=== PATIENT | male | born 1955 | race Caucasian/White ===

== ENCOUNTER 2019-04-20 03:15 | Inpatient (IN) ==
[2019-04-20] MEDS ORDERED: Naloxone 0.4 MG/ML INJ IVP PRN (05:32)
[2019-04-20] MEDS ORDERED: Nitroglycerin 0.4 MG TAB.SUBL SL PRN (05:37)
--- NOTE | 2019-04-20 05:39 | Internal Med History&Physical ---
Date of Encounter: 04/20/19 Time of Encounter: 05:39 Internal Medicine - H&P: HPI Chief complaint: Chest Pain History of present illness: Mr. Bond is a 63 year old male with a PMH of COPD and coronary artery disease status post PCI in 2008 who initially presented to [facility] with complaints of chest pain. Patient states that around 7 PM last night he was having jaw pain. Around midnight patient began having substernal chest pain causing him to grab his chest both hands. Patient was in his car at the time. Pain described as if being hit in the chest. Pain was 6 out of 10 in intensity, nonradiating, but did note pain in both arms bilaterally. Symptoms again improved after after taking another sublingual nitroglycerin. Patient states by the time he arrived to [facility] symptoms had resolved. Patient smokes a pack and half a day. Denies alcohol or drug use. Patient not currently on cholesterol medication because he states he was taken off it by his doctor due to being well controlled. Family history of heart disease with his older brother dying at age of 49 after a massive heart attack. Patient denies any recent illness, shortness of breath, nausea, vomiting, diarrhea, orthopnea, lower extremity edema. On initial assessment patient was afebrile, hemodynamically stable. Laboratory workup was notable for a mildly elevated troponin of 0.05. EKG shows sinus rhythm with nonspecific ST changes. Patient was getting loading dose of aspirin and subsequently transferred here for further evaluation. On my assessment patient was lying in bed in no acute distress. Vital stable. No reports of chest pain at this time. Past Med Surg Social Fam HX - Past Medical History Medical history: COPD, coronary artery disease, hypertension, other Additional medical history: restless leg syndrome. 2009 stent placement Psychiatric history: depression - Past Surgical History Surgical History: angioplasty/stent - Social History Smoking Status: Current every day smoker Smokeless Tobacco Status: No Alcohol use: none Drug use: none - Family History Father Living Status: Age at : 65 Hx Family Cancer: Yes (bladder cancer) Mother Hx Family Respiratory Disorders: Yes (COPD) Brother Hx Family Cardiac Disorders: Yes ([place]) Internal Medicine - H&P: Meds Aspirin [Adult Low Dose Aspirin EC] 81 mg PO DAILY 01/11/16 [History] Beclomethasone Diprop 80mcg [QVAR 80 mcg] 1 puff IH DAILY 01/11/16 [History] Clopidogrel [Plavix] 75 mg PO DAILY 01/11/16 [History] Gabapentin [Gralise] 600 mg PO DAILY 01/11/16 [History] Losartan Potassium [Cozaar] 100 mg PO DAILY 01/11/16 [History] Metoprolol Succinate 100 mg PO DAILY 01/11/16 [History] traMADol [Ultram] 50 mg PO HS 01/11/16 [History] Nitroglycerin [Nitrostat] 0.4 mg SL PRN PRN #1 vial 01/12/16 [Rx] hydroCHLOROthiazide [Hydrochlorothiazide] 12.5 mg PO DAILY 01/08/19 [History] Allergy/AdvReac Type Severity Reaction Status Date / Time No Known Allergies Allergy Verified 04/20/19 01:01 All Systems PM: A 10-system review of systems was performed and is negative for pertinent findings except as documented above in the HPI. - Constitutional Constitutional: no chills, no fever(s), no night sweats - EENT Eyes: no change in vision, no discharge, no pain, no photophobia Ears: no ear discharge, no ear pain, no tinnitus Nose, mouth and throat: no dysphagia, no nasal discharge, no neck pain, no sore throat - Cardiovascular Cardiovascular ROS IM: no chest pain, no diaphoresis, no dyspnea, no lightheadedness, no palpitations, no syncope - Respiratory Respiratory: no cough, no dyspnea, no wheezing, no excessive phlegm production - Gastrointestinal Gastrointestinal: no abdominal pain, no diarrhea, no hematemesis, no hematochezia, no melena, no nausea, no vomiting - Musculoskeletal Musculoskeletal ROS IM: no numbness, no tingling - Integumentary Integumentary IM: no rash, no unusual bruising - Neurological Neurological ROS: no confusion, no convulsions, no focal weakness, no numbness, no tingling, no tremor(s) - Hematologic/Lymphatic Hematologic/Lymphatic: no easy bruising - Constitutional Vitals: Temp Pulse Resp BP Pulse Ox 98.3 F 73 16 157/90 97 04/20/19 04:24 04/20/19 04:24 04/20/19 04:24 04/20/19 04:24 04/20/19 04:24 Exam: General: Alert and oriented 3 lying in bed in no acute distress Skin:Normal color, no rash, no lesions. HEENT:EOM, pupils equal, round and reactive. Cardiovascular:Normal S1 & S2, no rubs, murmurs or gallops. No JVD. Pulse regular. Lungs:Normal breath sounds, no wheezes or crackles. Abdomen:Soft, non-tender, no rigidity. Extremities:No deformity, no edema or tenderness, no joint swelling or clubbing. Neurological:Normal cognition and motor skills. Pulses:Carotid and radial pulses normal +2. Rest of the physical exam is non contributory Internal Med - H&P Results - Labs CBC & Chem 7: 04/20/19 09:12 - Assessment and Plan (1) Chest pain Current Visit: No Status: Acute Assessment and plan: Patient presenting with atypical chest pain which resolved after sublingual nitroglycerin. Found to have a mildly elevated troponin of 0.05. EKG relatively unremarkable. History of coronary artery disease status post stent placement in 2008. Significant smoking history and continues to smoke half a pack a day. Currently chest pain-free. Received loading dose of aspirin -Telemetry -Trend troponin -Echocardiogram -Sublingual nitroglycerin as needed -Continue patient's beta shagufta and Plavix -Consult cardiology Qualifiers: Chest pain type: precordial pain Qualified Code(s): R07.2 - Precordial pain (2) Elevated troponin I level Current Visit: No Status: Acute Assessment and plan: See above (3) COPD (chronic obstructive pulmonary disease) Current Visit: No Status: Chronic Assessment and plan: History of COPD. No evidence of acute exacerbation. Patient continues to smoke half pack a day. Discussed smoking cessation. -Duo nebs as needed -Nicotine patch Qualifiers: COPD type: unspecified COPD Qualified Code(s): J44.9 - Chronic obstructive pulmonary disease, unspecified (4) Coronary artery disease Current Visit: Yes Status: Acute Assessment and plan: Patient reports history of coronary artery disease with stent placement in 2008. Currently on baby aspirin, beta shagufta and Plavix. -Continue medical management Qualifiers: Coronary Disease-Associated Artery/Lesion type: [place] artery [place] vs. transplanted heart: [place] heart Associated angina: angina presence unspecified Qualified Code(s): I25.10 - Atherosclerotic heart disease of [place] coronary artery without angina pectoris (5) DVT prophylaxis Current Visit: Yes Status: Acute Assessment and plan: Subcutaneous heparin - Time Spent With Patient Total time spent is greater than 50% in coordination of care (as documented) at patient's floor/unit and/or counseling patient:
[2019-04-20 07:01] LABS: Hematocrit 39.1 % (37.5-50.1); Hemoglobin 12.6 g/dL (12.9-16.9); Mean Corpuscular HGB Conc 32.2 g/dL (31.6-35.5); Mean Corpuscular Hemoglobin 29.2 pg (28.0-33.3); Mean Corpuscular Volume 90.7 fL (83.0-100.0); Mean Platelet Volume 10.6 fL (9.4-12.4); Platelet Count 244 K/mcL (140-400); Red Blood Count 4.31 M/mcL (4.19-5.50); Red Cell Distribution Width 13.5 % (11.5-14.5); White Blood Count 9.8 K/mcL (4.3-11.1)
[2019-04-20] MEDS: Gabapentin 300 MG CAPSULE PO SCH (07:20)
[2019-04-20] MEDS: Metoprolol XL (24 HR) Succ 50 MG TAB.ER.24H PO SCH (07:20)
[2019-04-20] MEDS: Aspirin Enteric Coated 81 MG Tablet PO SCH (07:20)
[2019-04-20] MEDS: hydroCHLOROthiazide 25 MG TABLET PO SCH (07:21)
[2019-04-20] MEDS: QVAR 80 MCG IH SCH (07:26)
[2019-04-20] MEDS ORDERED: Ipratropium/Albuterol Neb 3 ML IH PRN (07:41)
[2019-04-20] MEDS ORDERED: *HR* Heparin 5,000 UNIT/ML VIAL SQ SCH (07:45)
[2019-04-20 08:00] LABS: Chol/HDL Ratio 3.3 (0-4.9)
[2019-04-20 08:05] LABS: Troponin I 0.07 ng/mL (< 0.04)
--- NOTE | 2019-04-20 08:40 | Event Note ---
Date of Encounter: 04/20/19 Time of Encounter: 08:33 Patient was seen and examined at bedside Currently denies any CP- has nitro patch on. This AM trop slightly elevated Notified cardiology -initiated on heparin drip to nothing by mouth for possible heart catheter
[2019-04-20] MEDS ORDERED: *HR* Heparin 5,000 UNIT/ML VIAL IVP PRN ×2 (09:03)
[2019-04-20] MEDS ORDERED: *HR* Heparin 5,000 UNIT/ML VIAL IVP ONE (09:03)
[2019-04-20] MEDS: Nicotine 14 MG PATCH.TD24 TD SCH ×2 (09:11→09:14)
[2019-04-20] MEDS ORDERED: Heparin 25,000 UNIT/250 ML D5W 25,000 UNIT/250 ML IV.SOLN IVC SCH (09:15)
[2019-04-20 09:32] LABS: Hematocrit 38.1 % (37.5-50.1); Hemoglobin 12.3 g/dL (12.9-16.9); Mean Corpuscular HGB Conc 32.3 g/dL (31.6-35.5); Mean Corpuscular Hemoglobin 28.9 pg (28.0-33.3); Mean Corpuscular Volume 89.6 fL (83.0-100.0); Mean Platelet Volume 10.5 fL (9.4-12.4); Platelet Count 236 K/mcL (140-400); Red Blood Count 4.25 M/mcL (4.19-5.50); Red Cell Distribution Width 13.5 % (11.5-14.5); White Blood Count 9.5 K/mcL (4.3-11.1)
[2019-04-20 09:41] LABS: Prothrombin Time 11.5 Seconds (9.4-12.1)
--- NOTE | 2019-04-20 10:12 | Cardiology Consult Note ---
Date of Encounter: 04/20/19 Time of Encounter: 09:30 Assessment and Plan (1) Elevated troponin I level Current Visit: No Status: Acute Pt presents with chest pain that is atypical. Pain not like previous angina. Occurs with emotional stress. Mild troponin 0.05, 0.07. EKG SR with no acute ST changes. H/o CAD with PCI in 2008. Recommend TTE for further evaluation. LHC vs stress test discussed. Discussed LHC R/B/A. Heparin gtt ordered. Asa, plavix, statin, bb. Smoking cessation recommended. Further recommendations to follow. (2) Coronary artery disease Current Visit: Yes Status: Acute H/p PCI 2008. Poor cardiology f/u. Not on GDMT. Stopped statin in past. Last LHC showed nonobstructive CAD with a 30% proximal LAD stenosis , 30% mid LAD, 30% mid circumflex, 40% proximal RCA disease with LV ejection fraction of 60%. He has a patent stent in mid RCA with 30% stenosis in distal RCA. Continue asa, statin, bb. Qualifiers: Coronary Disease-Associated Artery/Lesion type: [place] artery [place] vs. tr ansplanted heart: [place] heart Associated angina: angina presence unspecified Qualified Code(s): I25.10 - Atherosclerotic heart disease of [place] coronary artery without angina pectoris (3) Atypical chest pain Current Visit: No Status: Resolved Discussion w patient/family: The assessment and plan as outlined above was discussed with the patient and/or family members who expressed understanding and agreement. All questions were answered. Thank you for involving us in the care of your patient. Please call with any questions. History of Present Illness Consult date: 04/20/19 Requesting physician: Mallory Baker Consult reason: Chest pain History of present illness: Mr. Bond is a 63 year old male with past medical history of CAD s/p PCI in 2008, HTN, HLD, and tobacco abuse who presents with sudden onset of chest pain while driving. His pain was rated 10/10 and felt like someone punching him in the chest. The pain radiated to his bilateral shoulder. He took one nitrostat with relief of his pain. He reports similar pain one week prior that also was relieved with nitrostat. He feels he is under alot of pressure due to taking primary care of his grand children. States that both times he had chest pain he was feeling overwhelmed and yelling. Past Med Surg Social Fam HX - Past Medical History Medical history: COPD, coronary artery disease, hyperlipidemia, hypertension, other Additional medical history: restless leg syndrome. 2009 stent placement Psychiatric history: depression - Past Surgical History Surgical History: angioplasty/stent - Social History Smoking Status: Current every day smoker Packs per day: 1-2 Smokeless Tobacco Status: No Alcohol use: none Drug use: none - Family History Father Living Status: Age at : 65 Hx Family Cancer: Yes (bladder cancer) Mother Hx Family Respiratory Disorders: Yes (COPD) Brother Hx Family Cardiac Disorders: Yes ([place]) Medications and Allergies Aspirin [Adult Low Dose Aspirin EC] 81 mg PO DAILY 01/11/16 [History] Beclomethasone Diprop 80mcg [QVAR 80 mcg] 1 puff IH DAILY 01/11/16 [History] Clopidogrel [Plavix] 75 mg PO DAILY 01/11/16 [History] Gabapentin [Gralise] 600 mg PO DAILY 01/11/16 [History] Losartan Potassium [Cozaar] 100 mg PO DAILY 01/11/16 [History] Metoprolol Succinate 100 mg PO DAILY 01/11/16 [History] traMADol [Ultram] 50 mg PO HS 01/11/16 [History] Nitroglycerin [Nitrostat] 0.4 mg SL PRN PRN #1 vial 01/12/16 [Rx] hydroCHLOROthiazide [Hydrochlorothiazide] 12.5 mg PO DAILY 01/08/19 [History] Allergy/AdvReac Type Severity Reaction Status Date / Time No Known Allergies Allergy Verified 04/20/19 01:01 All Systems Review: The remainder of the systems were reviewed and are negative Physical Examination Vital Signs, Last 4 Hours Temp Pulse Resp BP Pulse Ox 04/20/19 07:42 97.8 F 70 16 138/91 96 General: Conversant, No Apparent Distress HEENT: Atraumatic, Normocephaly, Mucus Membranes Moist Neck: No JVD, Normal carotid pulses Cardiac: Reg Rate and Rhythm, Normal S1 and S2, No Murmur Lungs: Normal Breath Sounds, No Wheeze, Rales, Rhonchi Neuro: Alert and responsive, No focal deficits noted Abdomen: Soft, Non-Tender Skin: No rashes noted on visualized skin Musculoskeletal: No Chest Wall Tenderness Extremities: No Clubbing, No Cyanosis, No Edema, Normal Pulses Results 04/20/19 09:12 Lab Results 04/20/19 04/20/19 04/20/19 06:46 06:49 06:49 WBC 9.8 Hgb 12.6 L Hct 39.1 Plt Count 244 INR Troponin I 0.07 H* B-Natriuretic Peptide 189 H 04/20/19 04/20/19 09:12 09:12 WBC 9.5 Hgb 12.3 L Hct 38.1 Plt Count 236 INR 1.0 Troponin I B-Natriuretic Peptide - Imaging and Cardiology Echo: report reviewed - EKG Interpretation EKG results cardiology: personally reviewed Consult Discharge Plan - Plan Referrals: Valerie Arriaga, WORKFORCE DEVELOPMENT PROGRAM DIRECTOR [Primary Care Provider] -
[2019-04-20] MEDS ORDERED: 0.9 % Sodium Chloride 1,000 ML ONE ×2 (13:48→15:00)
[2019-04-20] MEDS ORDERED: ISOVUE-370 200 ML INFUS..BTL ONE (13:48)
[2019-04-20] MEDS ORDERED: Nitroglycerin 1,000 MCG/10 ML VIAL IV ONE (13:48)
[2019-04-20] MEDS ORDERED: Heparin 1,000 UNITS/500 mL 500 ML ONE (13:48)
[2019-04-20] MEDS ORDERED: *HR* Heparin 10,000 UNIT/10 ML VIAL ONE (13:48)
[2019-04-20] MEDS ORDERED: *HR* Midazolam HCl 2 MG/2 ML VIAL ONE (15:00)
[2019-04-20] MEDS ORDERED: *HR* FentaNYL (PF) 100 MCG/2 ML VIAL ONE (15:00)
--- NOTE | 2019-04-20 15:00 | Pre-Sedation Evaluation ---
Pre-sedation evaluation - Pre-sedation checklist Date of procedure: 04/20/19 Procedure: left heart cath Recent Vitals: Last Vital Signs Temp 98.0 F 04/20/19 10:28 Pulse 67 04/20/19 10:28 Resp 16 04/20/19 10:28 BP 125/82 04/20/19 10:28 Pulse Ox 95 04/20/19 10:28 H&P (including ROS) documented in medical record: Yes Previous reaction to sedatives/anesthetics: No Dietary Status: NPO after Midnight Airway Assessment: Patient can open mouth completely, TMJ function normal, Micrognathia (under-bite, receding chin) absent, Neck with adequate range of motion Dentition: dentures removed Possible difficult airway: No ASA Classification *see protocol: CLASS II-Mild systemic disease Plan of Care: Pt appropriate candidate for procedure/moderate/conscious sedation, Risks/benefits of procedure/sedation discussed w/ patient/family Cardiac Registry (Cardio Only) - Functional Capacity Functional Capacity: >=4 METS with symptoms - Clincal Frailty Scale Clinical Frailty Scale: Vulnerable
--- NOTE | 2019-04-20 15:51 | Invasive Diagnostic Lab Proc ---
Name: Robert Bond Date of Study: 04/20/2019 Date: 1955 Ht: 66.9in Medical Record#: [id number] Age: 63 Wt: 193.57lb Gender: Male BSA: 1.99 Order #: [id number] BMI: 30.38 Physicians Procedure Physician: Lesvia Perez MD, [facility] Referring MD: Referring MD: Staff Name Position Time In Ismael Yair MITCHELL Monitor 02:57 PM Iris Quinteros RN Senior Windows Engineer 02:58 PM Holly Solares RT (R) Scrub 02:58 PM Indications Indication Non-Stemi Procedures Performed Procedure L HRT ARTERY/VENTRICLE ANGIO Pre-Procedure Checklist Informed consent is complete signed and on chart. H&P is on chart. ID band is on and ID verified with patient. Patient NPO for procedure The procedure was described for the patient and questions were answered. ECG is on chart. Rhythm: NSR Plan of Care Patient will tolerate the procedure without complications. Adequate level of comfort will be maintained. Hemodynamics will remain stable Patient will recover from procedure without complications. Respiratory function will be maintained. Cardiac rhythm will remain stable. Patient temperature will be maintained. Patient and/or family have verbalized understanding of the procedure. Patient Education Chief Complaint/Reason for Test: Cardiac Cath Developmental Category: Adult (18-64 years) Developmentally Appropriate for Age: Yes Learning Barriers: None Education Needs: Procedure Education Method: Verbal Information Taught: Cardiac Cath Educational Evaluation: Able to repeat information Intravenous Access Time IV Size Location DC'd Fluid/Drip Rate Units RN 20g 1 /" Patent On Arrival Rt Antecubital 0.9NaCl ml/hr Iris Quinteros RN Allergies NKDA No Known Allergies Vital Signs Time BP (mmHg) HR (bpm) O2 Sat. RR (bpm) LOC 02:59 PM / % 5 = Fully awake and oriented or at pre-proc level 02:59 PM / % 4 = Oriented but drowsy 03:02 PM 164 / 102 67 97 % 25 Procedural Medications Time Medication Dose Units Method Given By 02:59 PM Oxygen 2 L/min nasal cannula Iris Quinteros RN 03:00 PM Versed 2 mg Intravenous Iris Quinteros RN 03:00 PM Fentanyl 50 mcg Intravenous Iirs Quinteros RN 03:10 PM Benadryl 25 mg Intravenous Iris Quinteros RN 03:11 PM Lidocaine 2% 18 ml Subcutaneous Lesvia Perez MD, [facility] ASA Classification: CLASS II- Mild systemic disease (i.e. well-controlled diabetes, hypertension, asthma, cigarette smoking) Sorin Score Preprocedure Postprocedure Activity 2- Moves 4 extremities sustained head lift Activity 2- Moves 4 extremities sustained head lift Circulation 2- SBP +/= 20 points of pre-anesthetic level Circulation 2- SBP +/= 20 points of pre-anesthetic level Consciousness 2- Awake and alert oriented x 3 Consciousness 2- Awake and alert oriented x 3 O2 Saturation 2- Able to maintain O2 satruation of 92% on room air O2 Saturation 2- Able to maintain O2 satruation of 92% on room air Respiratory 2- Able to deep breathe and cough well Respiratory 2- Able to deep breathe and cough well Total Score 10 Total Score 10 Contrast Agent: Isovue Diagnostic Contrast: 82 ml Total Contrast: 82 ml Fluoro Dose: 18 mGy Procedure Log Time Note Enter By 02:57 PM Pt arrived to label cutter 2 at 14:57 [facility] :58 PM Yair Guevara RN Position: Monitor Time in: :57 [facility] :58 PM Iris Quinteros RN Position: Senior Windows Engineer Time in: :58 [facility]:58 PM Holly Solares RT (R) Position: Scrub Time in: 14:58 [facility] PM Patient charges- Angio tray pack, Navilyst 3mm J, Pulse Oximetry and ACIST tubing and transducer [facility]:58 PM Physician arrived 14:58 [facility] :58 PM Flavio completed [facility] :58 PM Sign in performed according to hospital policy. Informed consent was obtained. [facility] :59 PM Time: 14:59 Patient comfortable and pain free: Yes [facility] Time: 14:59LOC: 5 = Fully awake and oriented or at pre-proc [facility] Time: 14:59 Oxygen on at 2 L/min per nasal cannula by Iris Quinteros RN [facility] :59 PM Procedure start 14:59 jcallan 03:00 PM CathStat 03:00 PM Vitals capture started with the following parameters, Patient=Adult, Interval=5 min, Initial Qvkvwlvc=233 mmHg, Deflation Rate=3 mmHg, Cuff placed on Right Arm 03:00 PM Time: 15:00 Versed 2 mg Intravenous Given by Iris Quinteros RN 03:01 PM Time: 15:00 Fentanyl 50 mcg Intravenous Given by Iris Quinteros RN 03:01 PM NIBP STAT measurement started. 03:02 PM HR=67 bpm, NZVE=356/102 mmhg, SpO2=97.0 %, Resp=25 B/min 03:02 PM ASA Class CLASS II- Mild systemic disease (i.e. well-controlled diabetes, hypertension, asthma, cigarette smoking) [email or web address] 03:03 PM Hair removed from procedure site in procedure lab using clippers. Bilateral groin prepped with Chloraprep by Iris Quinteros RN, then patient was draped. Skin intact. [email or web address] 03:05 PM Clinical Presentation: Non-STEMI jcallihan 03:10 PM Time out was performed according to hospital policy. Conscious sedation and anesthesia was achieved (see medication log with in this report above) [email or web address] 03:10 PM Time: 15:10 Benadryl 25 mg Intravenous Given by [facility]11 PM Time: 15:11 18 ml Lidocaine 2% to right groin Subcutaneous Given by Lesvia Perez MD, [facility] jcallihan 03:11 PM Access obtained by percutaneous puncture. 5Fr 10cm Terumo Harvey sheath placed in right Femoral artery. [id number] jcallihan 03:12 PM 5Fr FL 4 catheter inserted over the wire [facility] jcallihkelin 03:12 PM Recorded Pressure: Ao, HR=69, Condition=Condition 1 (Aorta) Ao 159/104/129 03:13 PM LCA angiography performed in multiple views. jcallihan 03:16 PM Time: 14:59LOC: 4 = Oriented but drowsy jcallihan 03:16 PM Time: 14:59 Patient comfortable and pain free: Yes jcallihan 03:16 PM Catheter removed jcallihan 03:16 PM 5Fr FR 4 catheter inserted over the wire [facility] jcallkelin 03:16 PM RCA angiography performed in multiple views. [email or web address] 03:18 PM Catheter removed jcallihan 03:19 PM 5Fr Pigtail catheter inserted over the wire [facility] jcallihan 03:19 PM Pressure channel 1 zero failed. 03:19 PM Pressure channel 1 zeroed. 03:19 PM Recorded Pressure: LV, HR=63, Condition=Condition 1 (Left Ventricle) LV 145/-4/11 03:19 PM Catheter crossed the aortic valve and was selectively placed in the left ventricle. Pressures recorded on pullback for left heart catheterization. [email or web address] 03:20 PM Recorded Pressure: LV, Ao, HR=61, Condition=Condition 1 (Left Ventricle) LV 132/21/32, (Aorta) Ao 128/80/102 03:20 PM Bolus angiogram of left Ventricle complete: 8 ml/sec for a total of 24 mls jcallihan 03:21 PM Catheter removed jcallihan 03:22 PM Wire removed jcallihan 03:22 PM Recorded Pressure: Ao, HR=63, Condition=Condition 1 (Aorta) Ao 141/70/97 03:22 PM Bolus angiogram of right Femoral complete: 4 ml/sec for a total of 7 mls jcallihan 03:22 PM Coronary Dominance: right jcallihan 03:24 PM Procedure completed at 15:24 04/20/2019 jcallihan 03:24 PM Did you address LIZETTE flow and Dominance? YesCoronary Dominance: right [email or web address] 03:25 PM Sign out completed: Radiation Dose 106.68 mGy, 17.9 Gy/cm2 Fluoro Time: 1.9 Isovue 370 - 200ml contrast 82.4 ml given by Lesvia Perez MD, [facility]. Complications: None. The patient was discharged out of the labor operator in stable condition. Sedation minutes 24. Cardiac Rehab Consult needed: Yes. Confirmed administered medications: Yes jcallihan 03:25 PM Isovue 370 - 200ml,1 Bottle(s) used. [email or web address] 03:25 PM Arterial sheath pulled, Mynx closure device used and was Successful [id number] S/N. jcallihan 03:25 PM Estimated Blood Loss: less than 20cc jcallihan 03:25 PM Post ECG NSR jcallihan 03:25 PM Post Blood Pressure 164/102 jcallihan 03:25 PM 15:25 Post Pulses Bilateral DP & PT 2+ jcallihan 03:25 PM Information taught Cardiac Cath and Mynx jcallihan 03:27 PM Education needs Procedure, Plan of Care, and Responsibilities of Patient in Care [email or web address] 03:27 PM Learning barriers :None jcallihan 03:27 PM Education Methods Verbal jcallihan 03:27 PM Education evaluation Able to repeat information jcallihan 03:27 PM Site status No bleeding/ No Hematoma - Rt Groin as reported by Holly Solares RT (R) at 15:27 [email or web address] 03:27 PM Opsite applied jcallihan 03:28 PM Plavix, Effient or Brilinta given No. Plavix given this A.M. jcallihan 03:28 PM Family placed in consult room. jcallihan 03:28 PM Complications: None jcallihan 03:33 PM Report given to 3B RN Pt taken to Room #43. 15:32 jcallihan 03:33 PM Patient out of room: 15:33 [email or web address] 03:34 PM Lesion found in Proximal LAD. Pre Stenosis: 70 Pre LIZETTE Flow: [email or web address] 03:34 PM Lesion found in Proximal RCA. Pre Stenosis: 80 Pre LIZETTE Flow: [email or web address] 03:34 PM Lesion found in Mid RCA. Pre Stenosis: 50 Pre LIZETTE Flow: [email or web address] 03:34 PM Lesion found in Distal RCA. Pre Stenosis: 50 Pre LIZETTE Flow: [email or web address] 03:37 PM Lesion found in Mid LAD. Pre Stenosis: 90 Pre LIZETTE Flow: jcallihan 03:37 PM Lesion found in 1st Diagonal. Pre Stenosis: 90 Pre LIZETTE Flow: jcallihan 03:38 PM Lesion found in Proximal Circumflex. Pre Stenosis: 30 Pre LIZETTE Flow: [email or web address] 03:38 PM Lesion found in 1st Marginal. Pre Stenosis: 30 Pre LIZETTE Flow: jcallihan 03:38 PM Lesion found in 2nd Marginal. Pre Stenosis: 99 Pre LIZETTE Flow: jcallihan 03:38 PM Proximal Left Anterior Descending Coronary Artery with 70% stenosis. If graft is supplying this territory, 0 % stenosis. [email or web address] 03:38 PM Mid/Distal Left Anterior Descending Coronary Artery and diagonal branches with 90% stenosis. If graft is supplying this area, 0 % stenosis jcallihan 03:39 PM Circumflex, Obtuse Marginal, Left Posterior Descending, and Left Posterolateral Coronary Arteries with 99 % stenosis. If graft is supplying this area, 0 % stenosis jcallihan 03:39 PM Right Coronary, Right Posterior Descending Arteries with Right Posterolateral and Acute Marginal branches with 80 % stenosis. If graft is supplying this area, 0 % stenosis jcallihan Complications Complication None None Hemodynamics Pressures Site Systolic/A Wave Diastolic/V Wave Mean AO 159 104 129 LV 145 -4 11 LV 132 21 32 AO 128 80 102 AO 141 70 97 Post Procedure Information Blood Pressure: 164/102 mmHg Rhythm: NSR Post procedural instructions were given Surgery consult for CABG Closure Device Time Device Success/Fail MynxGrip Successful Site Checks Time Location Status Staff Sheath In? Note 03:27 PM Rt Groin No bleeding/ No Hematoma Holly Solares RT (R) Pulses Time Site Pre-Procedure Post-Procedure Note Bilateral DP & PT 2+ Bilateral radial 2+ 3:25:00 PM Bilateral DP & PT 2+ Updated by Yair Guevara RN on 04/20/2019 3:44:58 PM electronically signed on 04/20/2019 3:45:38 PM with status of Final
[2019-04-20] MEDS: traMADol 50 MG TABLET PO SCH (20:38)
[2019-04-21] MEDS: QVAR 80 MCG IH SCH (07:55)
[2019-04-21] MEDS: Metoprolol XL (24 HR) Succ 50 MG TAB.ER.24H PO SCH (08:36)
[2019-04-21] MEDS: Isosorbide MONOnitrate (24 HR) 30 MG TAB.ER.24H PO SCH (08:36)
[2019-04-21] MEDS: Gabapentin 300 MG CAPSULE PO SCH (08:36)
[2019-04-21] MEDS: Nicotine 14 MG PATCH.TD24 TD SCH (08:36)
[2019-04-21] MEDS: hydroCHLOROthiazide 25 MG TABLET PO SCH (08:36)
[2019-04-21] MEDS: Aspirin Enteric Coated 81 MG Tablet PO SCH (08:36)
--- NOTE | 2019-04-21 11:07 | Cardiology Progress Note ---
Date of Encounter: 04/21/19 Time of Encounter: 09:45 Assessment and Plan (1) Coronary artery disease Current Visit: Yes Status: Acute Per Cardiology: S/P LHC: Lesion Findings/Interventions * Left Main Coronary Artery The LMCA is angiographically free of disease. * Left Anterior Descending There is a 70% stenosis in the Proximal LAD- calcified, diffusely diseased. There is a 90% stenosis in the Mid LAD. There is a 90% stenosis in the proximal 1st Diagonal at the ostium. * Circumflex There is a 30% stenosis in the Proximal Circumflex. There is a 30% stenosis in the 1st Marginal. There is a 99% stenosis in the 2nd Marginal.On * Right Coronary Artery There is a 80% stenosis in the Proximal RCA. There is a 50% in-stent restenosis in the Mid RCA. There is a 50% stenosis in the Distal RCA. On asa, statin, BB, ARB, long-acting nitrate. Plavix off now for washout. Echo pending. Will consult CT surgery Tuesday to discuss CABG candidacy. Discussed and reviewed with Dr. Doe and Dr. Suzanna Perez. CP free. All questions answered. Qualifiers: Coronary Disease-Associated Artery/Lesion type: [place] artery [place] vs. transplanted heart: [place] heart Associated angina: angina presence unspecified Qualified Code(s): I25.10 - Atherosclerotic heart disease of [place] coronary artery without angina pectoris Discussion w patient/family: The assessment and plan as outlined above was discussed with the patient and/or family members who expressed understanding and agreement. All questions were answered. Thank you for involving us in the care of your patient. Please call with any questions. Subjective Principal diagnosis: CAD Interval history: Denies any chest pain, shortness of breath, palpitations. Denies any concerns from his right groin site. Objective Selected Entries 04/21/19 06:29 04/21/19 08:45 Temperature 98.1 F Pulse Rate 70 Respiratory Rate 16 Blood Pressure 109/72 O2 Sat by Pulse Oximetry 95 Oxygen Delivery Method Room Air General: Conversant, No Apparent Distress HEENT: Atraumatic, Normocephaly, Mucus Membranes Moist Neck: No JVD, Normal carotid pulses Cardiac: Reg Rate and Rhythm, Normal S1 and S2, No Murmur Lungs: Normal Breath Sounds, No Wheeze, Rales, Rhonchi Neuro: Alert and responsive, No focal deficits noted Abdomen: Soft, Non-Tender Skin: No rashes noted on visualized skin Musculoskeletal: No Chest Wall Tenderness Extremities: No Clubbing, No Cyanosis, No Edema, Normal Pulses Results 04/20/19 09:12 Lab Results Laboratory Tests 04/20/19 04/20/19 04/20/19 01:09 06:49 12:45 Troponin I 0.05 H* 0.07 H* 0.06 H* Active Medications Albuterol/Ipratropium (Duoneb) 3 ml IH [id number] PRN PRN Reason: Bronchospasm Stop: 10/20/19 08:01 Aspirin (Aspirin Ec) 81 mg PO DAILY [facility] Stop: 10/20/19 09:01 Last Admin: 04/21/19 08:36 Dose: 81 mg Documented by: Atorvastatin Calcium (Lipitor) 40 mg PO HS [facility] Stop: 10/20/19 21:01 Last Admin: 04/20/19 20:38 Dose: 40 mg Documented by: Gabapentin (Neurontin) 600 mg PO DAILY [facility] Stop: 10/20/19 09:01 Last Admin: 04/21/19 08:36 Dose: 600 mg Documented by: Hydrochlorothiazide (Hydrochlorothiazide) 12.5 mg PO DAILY [facility] Stop: 10/20/19 09:01 Last Admin: 04/21/19 08:36 Dose: 12.5 mg Documented by: Isosorbide Mononitrate (Imdur) 30 mg PO DAILY [facility] Stop: 10/21/19 09:01 Last Admin: 04/21/19 08:36 Dose: 30 mg Documented by: Losartan Potassium (Cozaar) 100 mg PO DAILY [facility] Stop: 10/20/19 09:01 Last Admin: 04/21/19 08:36 Dose: 100 mg Documented by: Metoprolol Succinate (Toprol Xl) 100 mg PO DAILY [facility] Stop: 10/20/19 09:01 Last Admin: 04/21/19 08:36 Dose: 100 mg Documented by: Naloxone HCl (Narcan) 0.4 mg IVP Q2MPRN PRN PRN Reason: SEE COMMENTS Stop: 10/20/19 05:33 Nicotine (Nicoderm) 14 mg TD DAILY [facility]; Protocol Stop: 10/20/19 07:40 Last Admin: 04/21/19 08:36 Dose: 14 mg Documented by: Nitroglycerin (Nitroglycerin) 0.4 mg SL Q5MIN PRN PRN Reason: Chest Pain Stop: 10/20/19 05:38 Pharmacy Profile Note (Patient Taking Own Medication) 1 each IH DAILYR [facility] Stop: 10/20/19 10:01 Last Admin: 04/21/19 07:55 Dose: Not Given Documented by: Tramadol HCl (Ultram) 50 mg PO HS [facility] Stop: 10/20/19 21:01 Last Admin: 04/20/19 20:38 Dose: 50 mg Documented by: - Imaging and Cardiology Echo: pending Cardiac cath: report reviewed Consult Discharge Plan - Plan Referrals: Valerie Arriaga CNP [Primary Care Provider] - 04/23/19 9:30 am
--- NOTE | 2019-04-21 15:45 | Internal Med Progress Note ---
Hospitalist Progress Note - Encounter Date of Encounter: 04/21/19 Time of Encounter: 12:00 - Subjective Interval History: Patient was seen and examined at bedside currently denies any chest pain shortness breath or palpitation. Discussed treatment plan with the patient which includes Plavix washout for pending CABG on Tuesday. Patient verbalizes understanding - Exam Vitals: Temp Pulse Resp BP Pulse Ox 98.3 F 66 16 138/82 96 04/21/19 15:19 04/21/19 15:19 04/21/19 15:04/21/19 15:04/21/19 15: Exam: General: Alert and oriented 3 lying in bed in no acute distress Skin:Normal color, no rash, no lesions. HEENT:EOM, pupils equal, round and reactive. Cardiovascular:Normal S1 & S2, no rubs, murmurs or gallops. No JVD. Pulse regular. Lungs:Normal breath sounds, no wheezes or crackles. Abdomen:Soft, non-tender, no rigidity. Extremities:No deformity, no edema or tenderness, no joint swelling or clubbing. Neurological:Normal cognition and motor skills. Pulses:Carotid and radial pulses normal +2. Rest of the physical exam is non contributory - Assessment and Plan (1) COPD (chronic obstructive pulmonary disease) Current Visit: No Status: Chronic Assessment and Plan: History of COPD. No evidence of acute exacerbation. Patient continues to smoke half pack a day. Discussed smoking cessation. -Duo nebs as needed -Nicotine patch 04/21 Does not appear to be in acute exacerbation at this time continue with bronchodilators Discussed with the patient the importance of smoking cessation Continue nicotine patch (2) Chest pain Current Visit: No Status: Acute Assessment and Plan: Patient presenting with atypical chest pain which resolved after sublingual nitroglycerin. Found to have a mildly elevated troponin of 0.05. EKG relat ively unremarkable. History of coronary artery disease status post stent placement in 2008. Significant smoking history and continues to smoke half a pack a day. Currently chest pain-free. Received loading dose of aspirin -Telemetry -Trend troponin -Echocardiogram -Sublingual nitroglycerin as needed -Continue patient's beta shagufta and Plavix -Consult cardiology 04/21 Patient did present with chest pain and elevated troponin initiated on heparin drip was evaluated by cardiology Underwent left heart catheter which did show severe triple-vessel disease Currently undergoing Plavix washout for impending CABG per cardiothoracic surgery (3) Elevated troponin I level Current Visit: No Status: Acute Assessment and Plan: See above (4) Coronary artery disease Current Visit: Yes Status: Acute Assessment and Plan: Patient reports history of coronary artery disease with stent placement in 2008. Currently on baby aspirin, beta shagufta holding Plavix for impending CABG -Continue heparin drip (5) DVT prophylaxis Current Visit: Yes Status: Acute Assessment and Plan: Heparin drip - Time Spent with Patient Total time spent is greater than 50% in coordination of care (as documented) at patient's floor/unit and/or counseling patient: Internal Medicine: Result - Labs CBC & Chem 7: 04/20/19 09:12 - ABG Interpretation ABG results: PT/INR, D-dimer PT 11.5 Seconds (9.4-12.1) 04/20/19 09:12 - Impressions Impressions Echocardiogram 04/20/19 05:36 Impressions: LVEF 60-65%. Normal LV chamber size, wall thickness and function. Mild left ventricular diastolic dysfunction. Normal right ventricular structure and function. Unable to estimate RVSP due to lack of TR jet. No significant valvular dysfunction. Left Ventricular Wall Motion: Rest Echo Findings All wall segments showed normal motion. Findings: Study Quality * Technically adequate exam. ECG Findings * Normal sinus rhythm. Left Ventricle * LVEF 60-65%. * Normal LV chamber size, wall thickness and function. * Mild left ventricular diastolic dysfunction. Right Ventricle * Normal right ventricular structure and function. Left Atrium * Mildly dilated left atrium. Right Atrium * Normal right atrial size. Interatrial Septum * Interatrial septum not well evaluated. Aortic Valve * Aortic valve not well visualized. * No aortic regurgitation. * No aortic stenosis. Mitral Valve * Normal mitral valve structure and function. * Trace mitral regurgitation. * No mitral stenosis. Tricuspid Valve * Normal tricuspid valve structure and function. * No tricuspid regurgitation. * Unable to estimate RVSP due to lack of TR jet. Pulmonic Valve * Pulmonic valve not well visualized. * No pulmonic regurgitation. Aorta * Normally sized aortic root. Pericardium * The pericardium appears normal. IVC * Normal IVC dimensions and inspiratory collapse. Pulmonary Artery * Normal visualized portions of the main pulmonary artery. Consult Discharge Plan - Plan Referrals: Valerie Arriaga CNP [Primary Care Provider] - 08/05/19 9:30 am ____ (1) COPD (chronic obstructive pulmonary disease) Qualifiers: COPD type: unspecified COPD Qualified Code(s): J44.9 - Chronic obstructive pulmonary disease, unspecified (2) Chest pain Qualifiers: Chest pain type: precordial pain Qualified Code(s): R07.2 - Precordial pain (4) Coronary artery disease Qualifiers: Coronary Disease-Associated Artery/Lesion type: [place] artery [place] vs. transplanted heart: [place] heart Associated angina: angina presence unspecified Qualified Code(s): I25.10 - Atherosclerotic heart disease of [place] coronary artery without angina pectoris
[2019-04-21] MEDS: traMADol 50 MG TABLET PO SCH (21:31)
[2019-04-22] MEDS: QVAR 80 MCG IH SCH (08:30)
[2019-04-22] MEDS: Metoprolol XL (24 HR) Succ 50 MG TAB.ER.24H PO SCH (08:30)
[2019-04-22] MEDS: Isosorbide MONOnitrate (24 HR) 30 MG TAB.ER.24H PO SCH (08:30)
[2019-04-22] MEDS: hydroCHLOROthiazide 25 MG TABLET PO SCH (08:30)
[2019-04-22] MEDS: Gabapentin 300 MG CAPSULE PO SCH (09:05)
[2019-04-22] MEDS: Aspirin Enteric Coated 81 MG Tablet PO SCH (09:05)
[2019-04-22] MEDS: Nicotine 14 MG PATCH.TD24 TD SCH (09:05)
--- NOTE | 2019-04-22 09:28 | Cardiology Progress Note ---
Date of Encounter: 04/22/19 Time of Encounter: 08:25 Assessment and Plan (1) Coronary artery disease Current Visit: Yes Status: Acute Per Cardiology: S/P LHC: Lesion Findings/Interventions * Left Main Coronary Artery The LMCA is angiographically free of disease. * Left Anterior Descending There is a 70% stenosis in the Proximal LAD- calcified, diffusely diseased. There is a 90% stenosis in the Mid LAD. There is a 90% stenosis in the proximal 1st Diagonal at the ostium. * Circumflex There is a 30% stenosis in the Proximal Circumflex. There is a 30% stenosis in the 1st Marginal. There is a 99% stenosis in the 2nd Marginal.On * Right Coronary Artery There is a 80% stenosis in the Proximal RCA. There is a 50% in-stent restenosis in the Mid RCA. There is a 50% stenosis in the Distal RCA. CP free. On asa, statin, BB, ARB, long-acting nitrate. Plavix off now for washout. Echo showed preserved EF, no significant valvular dysfunction. Will consult CT surgery Tuesday to discuss CABG candidacy. Qualifiers: Coronary Disease-Associated Artery/Lesion type: [place] artery [place] vs. transplanted heart: [place] heart Associated angina: angina presence unspecified Qualified Code(s): I25.10 - Atherosclerotic heart disease of [place] coronary artery without angina pectoris Discussion w patient/family: The assessment and plan as outlined above was discussed with the patient and/or family members who expressed understanding and agreement. All questions were answered. Thank you for involving us in the care of your patient. Please call with any questions. Subjective Principal diagnosis: CAD Interval history: Denies any chest pain, shortness of breath, palpitations. Objective Vital Signs, Last 4 Hours Temp Pulse Resp BP Pulse Ox 04/22/19 06:59 98.0 F 58 16 85/60 91 General: Conversant, No Apparent Distress HEENT: Atraumatic, Normocephaly, Mucus Membranes Moist Neck: No JVD, Normal carotid pulses Cardiac: Reg Rate and Rhythm, Normal S1 and S2, No Murmur Lungs: Normal Breath Sounds, No Wheeze, Rales, Rhonchi Neuro: Alert and responsive, No focal deficits noted Abdomen: Soft, Non-Tender Skin: No rashes noted on visualized skin Musculoskeletal: No Chest Wall Tenderness Extremities: No Clubbing, No Cyanosis, No Edema, Normal Pulses Results 04/20/19 09:12 Impressions Echocardiogram 04/20/19 05:36 Impressions: LVEF 60-65%. Normal LV chamber size, wall thickness and function. Mild left ventricular diastolic dysfunction. Normal right ventricular structure and function. Unable to estimate RVSP due to lack of TR jet. No significant valvular dysfunction. Left Ventricular Wall Motion: Rest Echo Findings All wall segments showed normal motion. Findings: Study Quality * Technically adequate exam. ECG Findings * Normal sinus rhythm. Left Ventricle * LVEF 60-65%. * Normal LV chamber size, wall thickness and function. * Mild left ventricular diastolic dysfunction. Right Ventricle * Normal right ventricular structure and function. Left Atrium * Mildly dilated left atrium. Right Atrium * Normal right atrial size. Interatrial Septum * Interatrial septum not well evaluated. Aortic Valve * Aortic valve not well visualized. * No aortic regurgitation. * No aortic stenosis. Mitral Valve * Normal mitral valve structure and function. * Trace mitral regurgitation. * No mitral stenosis. Tricuspid Valve * Normal tricuspid valve structure and function. * No tricuspid regurgitation. * Unable to estimate RVSP due to lack of TR jet. Pulmonic Valve * Pulmonic valve not well visualized. * No pulmonic regurgitation. Aorta * Normally sized aortic root. Pericardium * The pericardium appears normal. IVC * Normal IVC dimensions and inspiratory collapse. Pulmonary Artery * Normal visualized portions of the main pulmonary artery. Active Medications Albuterol/Ipratropium (Duoneb) 3 ml IH [id number] PRN PRN Reason: Bronchospasm Stop: 10/20/19 08:01 Aspirin (Aspirin Ec) 81 mg PO DAILY [facility] Stop: 10/20/19 09:01 Last Admin: 04/22/19 09:05 Dose: 81 mg Documented by: Atorvastatin Calcium (Lipitor) 40 mg PO HS [facility] Stop: 10/20/19 21:01 Last Admin: 04/21/19 21:32 Dose: 40 mg Documented by: Gabapentin (Neurontin) 600 mg PO DAILY [facility] Stop: 10/20/19 09:01 Last Admin: 04/22/19 09:05 Dose: 600 mg Documented by: Hydrochlorothiazide (Hydrochlorothiazide) 12.5 mg PO DAILY [facility] Stop: 10/20/19 09:01 Last Admin: 04/22/19 08:30 Dose: Not Given Documented by: Isosorbide Mononitrate (Imdur) 30 mg PO DAILY [facility] Stop: 10/21/19 09:01 Last Admin: 04/22/19 08:30 Dose: Not Given Documented by: Losartan Potassium (Cozaar) 100 mg PO DAILY [facility] Stop: 10/20/19 09:01 Last Admin: 04/22/19 08:29 Dose: Not Given Documented by: Metoprolol Succinate (Toprol Xl) 100 mg PO DAILY [facility] Stop: 10/20/19 09:01 Last Admin: 04/22/19 08:30 Dose: Not Given Documented by: Naloxone HCl (Narcan) 0.4 mg IVP Q2MPRN PRN PRN Reason: SEE COMMENTS Stop: 10/20/19 05:33 Nicotine (Nicoderm) 14 mg TD DAILY [facility]; Protocol Stop: 10/20/19 07:40 Last Admin: 04/22/19 09:05 Dose: 14 mg Documented by: Nitroglycerin (Nitroglycerin) 0.4 mg SL Q5MIN PRN PRN Reason: Chest Pain Stop: 10/20/19 05:38 Pharmacy Profile Note (Patient Taking Own Medication) 1 each IH DAILYR [facility] Stop: 10/20/19 10:01 Last Admin: 04/22/19 08:30 Dose: Not Given Documented by: Tramadol HCl (Ultram) 50 mg PO HS [facility] Stop: 10/20/19 21:01 Last Admin: 04/21/19 21:31 Dose: 50 mg Documented by: - Imaging and Cardiology Echo: report reviewed Cardiac cath: report reviewed Consult Discharge Plan - Plan Referrals: Valerie Arriaga CNP [Primary Care Provider] - 04/23/19 9:30 am
--- NOTE | 2019-04-22 16:13 | Internal Med Progress Note ---
Hospitalist Progress Note - Encounter Date of Encounter: 04/22/19 Time of Encounter: 16:08 - Exam Vitals: Temp Pulse Resp BP Pulse Ox 98.2 F 80 16 142/87 94 04/22/19 14:43 04/22/19 14:43 04/22/19 14:43 04/22/19 14:43 04/22/19 14:43 Exam: General appearance: Present: A&O X 3, pleasant, no acute distress - Head Head exam: Present: atraumatic, normocephalic - Eye Eye exam: Present: PERRL, conjuntiva pink, sclera anicteric Pupils: Present: PERRL - Neck Neck exam general surgery: Present: supple, trachea midline. Absent: lymphadenopathy - Respiratory Respiratory exam: Present: chest wall tenderness, CTAB. Absent: accessory muscle use, rales, rhonchi, wheezes - Cardiovascular Cardiovascular exam: Present: RRR, +S1, +S2. Absent: diastolic murmur, gallop, rubs, systolic murmur - GI/Abdominal GI/Abdominal exam: Present: normal bowel sounds, soft, no peritoneal signs. Absent: distended, tenderness - Extremities Exam Extremities exam: Present: warm, radial pulses palpable and symmetrical. Absent: calf tenderness, cyanotic, pedal edema - Neurological Exam Neurological exam: Present: CN II-XII intact, oriented X3, no focal deficits. Absent: pronater drift, facial droop, speech deficit - Skin Skin exam: Present: dry, intact - Assessment and Plan (1) Coronary artery disease Current Visit: Yes Status: Acute Assessment and Plan: presented with chest pain. 04/20/2019 C showed multivessel disease. TTE with preserved EF. Chest pain now resolved. Continue ASA, statin, BB, ARB and nitrate. Plavix held for washout. CTS consulted for CABG candidacy. Cardiology following (2) COPD (chronic obstructive pulmonary disease) Current Visit: No Status: Chronic Assessment and Plan: History of COPD. No evidence of acute exacerbation. Patient continues to smoke half pack a day. Discussed smoking cessation. -Duo nebs as needed -Nicotine patch 04/21 Does not appear to be in acute exacerbation at this time continue with bronchodilators Discussed with the patient the importance of smoking cessation Continue nicotine patch (3) DVT prophylaxis Current Visit: Yes Status: Acute Assessment and Plan: Heparin - Time Spent with Patient Total time spent is greater than 50% in coordination of care (as documented) at patient's floor/unit and/or counseling patient: Internal Medicine: Result - Labs CBC & Chem 7: 04/20/19 09:12 - ABG Interpretation ABG results: PT/INR, D-dimer PT 11.5 Seconds (9.4-12.1) 04/20/19 09:12 Consult Discharge Plan - Plan Referrals: Valerie Arriaga CNP [Primary Care Provider] - 04/23/19 9:30 am ___ (1) Coronary artery disease Qualifiers: Coronary Disease-Associated Artery/Lesion type: [place] artery [place] vs. transplanted heart: [place] heart Associated angina: angina presence unspecified Qualified Code(s): I25.10 - Atherosclerotic heart disease of [place] coronary artery without angina pectoris (2) COPD (chronic obstructive pulmonary disease) Qualifiers: COPD type: unspecified COPD Qualified Code(s): J44.9 - Chronic obstructive pulmonary disease, unspecified
[2019-04-22] MEDS: traMADol 50 MG TABLET PO SCH (21:50)
[2019-04-22] MEDS: *HR* Heparin 5,000 UNIT/ML VIAL SQ SCH (21:51)
[2019-04-23] MEDS: *HR* Heparin 5,000 UNIT/ML VIAL SQ SCH ×3 (05:19→21:23)
[2019-04-23 05:42] LABS: Hematocrit 41.9 % (37.5-50.1); Hemoglobin 13.6 g/dL (12.9-16.9); Mean Corpuscular HGB Conc 32.5 g/dL (31.6-35.5); Mean Corpuscular Hemoglobin 29.3 pg (28.0-33.3); Mean Corpuscular Volume 90.3 fL (83.0-100.0); Mean Platelet Volume 10.3 fL (9.4-12.4); Platelet Count 243 K/mcL (140-400); Red Blood Count 4.64 M/mcL (4.19-5.50); Red Cell Distribution Width 13.3 % (11.5-14.5); White Blood Count 12.5 K/mcL (4.3-11.1)
[2019-04-23 06:01] LABS: BUN/Creatinine Ratio 18 (6-26); Blood Urea Nitrogen 17 mg/dL (8-23); Calcium 8.8 mg/dL (8.6-10.3); Carbon Dioxide 30 mEq/L (23-29); Chloride 101 mEq/L (98-107); Glucose 96 mg/dL (70-105); Osmolality,Calculated 291 (280-300); Potassium 3.5 mEq/L (3.5-5.1); Sodium 140 mEq/L (136-145); eGFR For African Americans > 60 (> 60); eGFR For Non-African Americans > 60 (> 60)
[2019-04-23] MEDS: Nicotine 14 MG PATCH.TD24 TD SCH (09:01)
[2019-04-23] MEDS: Isosorbide MONOnitrate (24 HR) 30 MG TAB.ER.24H PO SCH (09:01)
[2019-04-23] MEDS: hydroCHLOROthiazide 25 MG TABLET PO SCH (09:01)
[2019-04-23] MEDS: Aspirin Enteric Coated 81 MG Tablet PO SCH (09:01)
[2019-04-23] MEDS: QVAR 80 MCG IH SCH (09:02)
[2019-04-23] MEDS: Metoprolol XL (24 HR) Succ 50 MG TAB.ER.24H PO SCH ×2 (09:02→21:24)
[2019-04-23] MEDS: Gabapentin 300 MG CAPSULE PO SCH (09:02)
--- NOTE | 2019-04-23 09:16 | Cardiology Progress Note ---
Date of Encounter: 04/23/19 Time of Encounter: 09:15 Assessment and Plan (1) Coronary artery disease Current Visit: Yes Status: Acute Per Cardiology: S/P LHC: Lesion Findings/Interventions * Left Main Coronary Artery The LMCA is angiographically free of disease. * Left Anterior Descending There is a 70% stenosis in the Proximal LAD- calcified, diffusely diseased. There is a 90% stenosis in the Mid LAD. There is a 90% stenosis in the proximal 1st Diagonal at the ostium. * Circumflex There is a 30% stenosis in the Proximal Circumflex. There is a 30% stenosis in the 1st Marginal. There is a 99% stenosis in the 2nd Marginal.On * Right Coronary Artery There is a 80% stenosis in the Proximal RCA. There is a 50% in-stent restenosis in the Mid RCA. There is a 50% stenosis in the Distal RCA. CP free. On asa, statin, BB, ARB, long-acting nitrate. Plavix off now for washout. Echo showed preserved EF, no significant valvular dysfunction. Will consult CT surgery Tuesday to discuss CABG candidacy. Qualifiers: Coronary Disease-Associated Artery/Lesion type: [place] artery [place] vs. transplanted heart: [place] heart Associated angina: angina presence unspecified Qualified Code(s): I25.10 - Atherosclerotic heart disease of [place] coronary artery without angina pectoris Discussion w patient/family: The assessment and plan as outlined above was discussed with the patient and/or family members who expressed understanding and agreement. All questions were answered. Thank you for involving us in the care of your patient. Please call with any questions. Subjective Principal diagnosis: CAD Interval history: Denies any chest pain, shortness of breath, palpitations. Objective Vital Signs, Last 4 Hours Temp Pulse Resp BP Pulse Ox 04/23/19 06:28 98.1 F 70 17 147/82 95 Results 04/23/19 05:25 04/23/19 05:25 Lab Results Laboratory Tests 04/23/19 04/23/19 05:25 05:25 Hgb 13.6 Hct 41.9 Creatinine 0.93 Est GFR (Non-Af Amer) > 60 Consult Discharge Plan - Plan Referrals: Valerie Arriaga, [facility]GER [Primary Care Provider] - 04/23/19 9:30 am
--- NOTE | 2019-04-23 10:07 | Internal Med Progress Note ---
Hospitalist Progress Note - Encounter Date of Encounter: 04/23/19 Time of Encounter: 10:05 - Subjective Interval History: Patient seen and examined in the room. He reported absence of chest pain, shortness of breath, palpitation, or syncope overnight. - Exam Vitals: Temp Pulse Resp BP Pulse Ox 98.1 F 70 17 147/82 95 04/23/19 06:28 04/23/19 06:28 04/23/19 06:28 04/23/19 06:28 04/23/19 06:28 Exam: General appearance: Present: A&O X 3, pleasant, no acute distress - Head Head exam: Present: atraumatic, normocephalic - Eye Eye exam: Present: PERRL, conjuntiva pink, sclera anicteric Pupils: Present: PERRL - Neck Neck exam general surgery: Present: supple, trachea midline. Absent: lymphadenopathy - Respiratory Respiratory exam: Present: chest wall tenderness, CTAB. Absent: accessory muscle use, rales, rhonchi, wheezes - Cardiovascular Cardiovascular exam: Present: RRR, +S1, +S2. Absent: diastolic murmur, gallop, rubs, systolic murmur - GI/Abdominal GI/Abdominal exam: Present: normal bowel sounds, soft, no peritoneal signs. Absent: distended, tenderness - Extremities Exam Extremities exam: Present: warm, radial pulses palpable and symmetrical. Absent: calf tenderness, cyanotic, pedal edema - Neurological Exam Neurological exam: Present: CN II-XII intact, oriented X3, no focal deficits. Absent: pronater drift, facial droop, speech deficit - Skin Skin exam: Present: dry, intact - Assessment and Plan (1) COPD (chronic obstructive pulmonary disease) Current Visit: No Status: Chronic Assessment and Plan: History of COPD. No evidence of acute exacerbation. Patient continues to smoke half pack a day. Discussed smoking cessation. -Duo nebs as needed -Nicotine patch 04/21 Does not appear to be in acute exacerbation at this time continue with bronchodilators Discussed with the patient the importance of smoking cessation Continue nicotine patch 04/23 Respiratory status stable, continue current treatment. (2) Coronary artery disease Current Visit: Yes Status: Acute Assessment and Plan: presented with chest pain. 04/20/2019 LHC showed multivessel disease. TTE with preserved EF. Chest pain now resolved. Continue ASA, statin, BB, ARB and nitrate. Plavix held for washout. Cardiology following. Plan for CABG today. (3) DVT prophylaxis Current Visit: Yes Status: Acute Assessment and Plan: Heparin - Time Spent with Patient Total time spent is greater than 50% in coordination of care (as documented) at patient's floor/unit and/or counseling patient: Greater than 35 minutes Plan of Care Discussed with: patient Internal Medicine: Result - Labs CBC & Chem 7: 04/23/19 05:25 04/23/19 05:25 Labs: Short CBC 04/23/19 Range/Units 05:25 WBC 12.5 H (4.3-11.1) K/mcL Hgb 13.6 (12.9-16.9) g/dL Hct 41.9 (37.5-50.1) % Plt Count 243 (140-400) K/mcL BMP 04/23/19 05:25 Sodium 140 Potassium 3.5 Chloride 101 Carbon Dioxide 30 H BUN 17 Creatinine 0.93 Glucose 96 Calcium 8.8 - ABG Interpretation ABG results: PT/INR, D-dimer PT 11.5 Seconds (9.4-12.1) 04/20/19 09:12 Consult Discharge Plan - Plan Referrals: Valerie Arriaga CNP [Primary Care Provider] - 04/23/19 9:30 am (1) COPD (chronic obstructive pulmonary disease) Qualifiers: COPD type: unspecified COPD Qualified Code(s): J44.9 - Chronic obstructive pulmonary disease, unspecified (2) Coronary artery disease Qualifiers: Coronary Disease-Associated Artery/Lesion type: [place] artery [place] vs. transplanted heart: [place] heart Associated angina: angina presence unspecified Qualified Code(s): I25.10 - Atherosclerotic heart disease of [place] coronary artery without angina pectoris
--- NOTE | 2019-04-23 10:20 | Cardiology Progress Note ---
Date of Encounter: 04/23/19 Time of Encounter: 10:15 Assessment and Plan (1) Coronary artery disease Current Visit: Yes Status: Acute Per Cardiology: S/P LHC: Lesion Findings/Interventions * Left Main Coronary Artery The LMCA is angiographically free of disease. * Left Anterior Descending There is a 70% stenosis in the Proximal LAD- calcified, diffusely diseased. There is a 90% stenosis in the Mid LAD. There is a 90% stenosis in the proximal 1st Diagonal at the ostium. * Circumflex There is a 30% stenosis in the Proximal Circumflex. There is a 30% stenosis in the 1st Marginal. There is a 99% stenosis in the 2nd Marginal.On * Right Coronary Artery There is a 80% stenosis in the Proximal RCA. There is a 50% in-stent restenosis in the Mid RCA. There is a 50% stenosis in the Distal RCA. CP free. On asa, statin, BB, ARB, long-acting nitrate. Plavix off now for washout-- last dose Tuesday am. Echo showed preserved EF, no significant valvular dysfunction. Discussed with CT surgery with plans for potential CABG on . Will discontinue ARB (for preop) and titrate beta shagufta for blood pressure optimization. Cardiology signing off, reconsult as needed, follow-up arranged. All questions answered. Patient and family verbalized understanding and agreed with plan. Qualifiers: Coronary Disease-Associated Artery/Lesion type: [place] artery [place] vs. transplanted heart: [place] heart Associated angina: angina presence unspecif ied Qualified Code(s): I25.10 - Atherosclerotic heart disease of [place] c oronary artery without angina pectoris Discussion w patient/family: The assessment and plan as outlined above was discussed with the patient and/or family members who expressed understanding and agreement. All questions were answered. Thank you for involving us in the care of your patient. Please call with any questions. Subjective Principal diagnosis: CAD Interval history: Denies any chest pain, shortness of breath, palpitations. Objective Vital Signs, Last 4 Hours Temp Pulse Resp BP Pulse Ox 04/23/19 06:28 98.1 F 70 17 147/82 95 General: Conversant, No Apparent Distress HEENT: Atraumatic, Normocephaly, Mucus Membranes Moist Neck: No JVD, Normal carotid pulses Cardiac: Reg Rate and Rhythm, Normal S1 and S2, No Murmur Lungs: Normal Breath Sounds, No Wheeze, Rales, Rhonchi Neuro: Alert and responsive, No focal deficits noted Abdomen: Soft, Non-Tender Skin: No rashes noted on visualized skin Musculoskeletal: No Chest Wall Tenderness Extremities: No Clubbing, No Cyanosis, No Edema, Normal Pulses Results 04/23/19 05:25 04/23/19 05:25 Lab Results Active Medications Albuterol/Ipratropium (Duoneb) 3 ml IH [id number] PRN PRN Reason: Bronchospasm Stop: 10/20/19 08:01 Aspirin (Aspirin Ec) 81 mg PO DAILY [facility] Stop: 10/20/19 09:01 Last Admin: 04/23/19 09:01 Dose: 81 mg Documented by: Atorvastatin Calcium (Lipitor) 40 mg PO HS [facility] Stop: 10/20/19 21:01 Last Admin: 04/22/19 21:50 Dose: 40 mg Documented by: Gabapentin (Neurontin) 600 mg PO DAILY [facility] Stop: 10/20/19 09:01 Last Admin: 04/23/19 09:02 Dose: 600 mg Documented by: Heparin Sodium (Porcine) (Heparin) 5,000 unit SQ Q8HCO [facility]; Protocol Stop: 10/22/19 22:01 Last Admin: 04/23/19 05:19 Dose: 5,000 unit Documented by: Hydrochlorothiazide (Hydrochlorothiazide) 12.5 mg PO DAILY [facility] Stop: 10/20/19 09:01 Last Admin: 04/23/19 09:01 Dose: 12.5 mg Documented by: Isosorbide Mononitrate (Imdur) 30 mg PO DAILY [facility] Stop: 10/21/19 09:01 Last Admin: 04/23/19 09:01 Dose: 30 mg Documented by: Metoprolol Succinate (Toprol Xl) 100 mg PO BID [facility] Stop: 10/23/19 21:01 Naloxone HCl (Narcan) 0.4 mg IVP Q2MPRN PRN PRN Reason: SEE COMMENTS Stop: 10/20/19 05:33 Nicotine (Nicoderm) 14 mg TD DAILY [facility]; Protocol Stop: 10/20/19 07:40 Last Admin: 04/23/19 09:01 Dose: 14 mg Documented by: Nitroglycerin (Nitroglycerin) 0.4 mg SL Q5MIN PRN PRN Reason: Chest Pain Stop: 10/20/19 05:38 Pharmacy Profile Note (Patient Taking Own Medication) 1 each IH DAILYR [facility] Stop: 10/20/19 10:01 Last Admin: 04/23/19 09:02 Dose: Not Given Documented by: Tramadol HCl (Ultram) 50 mg PO HS [facility] Stop: 10/20/19 21:01 Last Admin: 04/22/19 21:50 Dose: 50 mg Documented by: - Imaging and Cardiology Echo: report reviewed Cardiac cath: report reviewed Consult Discharge Plan - Plan Referrals: Valerie Arriaga CNP [Primary Care Provider] - 04/23/19 9:30 am
--- NOTE | 2019-04-23 12:20 | Cardiothoracic Consult Note ---
Date of Encounter: 04/23/19 Time of Encounter: 12:14 Assessment and Plan (1) Coronary artery disease Current Visit: Yes Status: Acute The patient is a 63-year-old hypertensive man with known CAD, hypercholesterolemia, and COPD. He was transferred to [facility] from [facility] with a diagnosis of stable angina. He und erwent cardiac catheterization and was found to have severe 3 vessel CAD. In particular, the patient has a 70% proximal LAD lesion, 90% mid LAD lesion, a 90% proximal D1 lesion, a 99% proximal OM 2 lesion, an 80% proximal RCA lesion, a 50% mid RCA in-stent restenosis, and a 50% distal RCA lesion. He has been recommended for CABG. I concur with this recommendation. The STS risk calculator reveals an operative mortality risk 1.05%, renal failure risk 0.93%, permanent stroke risk 0.98%, deep sternal wound infection risk 0.24%, and reoperation risk 1.63%. The patient understands the procedure, benefits, alternatives, and risks as outlined above. He had been on Plavix until 04/20/2019. The patient will need a carotid duplex to evaluate his left carotid bruit. He is tentatively scheduled for CABG on 04/26/2019. The assessment and plan as outlined above was discussed with the patient and/or family members who expressed understanding and agreement. All questions were answered. Qualifiers: Coronary Disease-Associated Artery/Lesion type: [place] artery [place] vs. transplanted heart: [place] heart Associated angina: angina presence unspecified Qualified Code(s): I25.10 - Atherosclerotic heart disease of [place] coronary artery without angina pectoris - History of Present Illness Consult date: 04/23/19 Requesting physician: Lesvia Perez Consult reason: CABG evaluation Chief complaint: CAD History of present illness: Mr. Bond is a 63 year old hypertensive man with known CAD, hypercholesterolemia, and COPD. The patient's cardiac history dates back to 2008 which time he underwent PCI with RCA stent placement. He states that during the last 1-2 months he has had increasing shortness of breath and f atigue. He has been unable to work in his yard as he had in previous years because of the fatigue. On 04/19/2019, the patient had severe substernal chest pain radiating to his jaws, shortness of breath, and dyspnea on exertion while driving. He took sublingual nitroglycerin with some relief; however, his [id number] convinced him to seek medical attention at [facility]. He was found to have slightly elevated troponin I levels and was treated medically prior to transfer to [facility] for further cardiac care. The patient underwent a transthoracic echocardiogram which revealed an LVEF 60- 65% with normal left ventricular chamber size, wall thickness, and function. No significant valvular dysfunction was noted. Subsequent cardiac catheterization revealed severe 3 vessel CAD. In particular, the patient has a 70% proximal LAD lesion, a 90% mid LAD lesion, a 90% proximal D1 lesion, a 30% proximal LCx lesion, a 30% proximal OM1 lesion, a 99% proximal OM 2 lesion, an 80% proximal RCA lesion, a 50% in-stent restenosis in the mid RCA, and a 50% distal RCA lesion. He has been recommended for CABG. Past Med Surg Social Fam HX - Past Medical History Medical history: COPD, coronary artery disease, hyperlipidemia, hypertension Additional medical history: restless leg syndrome. 2009 stent placement Psychiatric history: depression - Past Surgical History Surgical History: angioplasty/stent, other (Excision of anal verucca) - Social History Smoking Status: Current every day smoker Packs per day: 1.5PPD x 47YRS Smokeless Tobacco Status: No Alcohol use: none Drug use: none Occupational status: disabled Current living situation: Home - Independent Activity Level: Independent ambulation, Very active Recent Out of Country Travel Within the Last 8 Weeks: No Exposure or Possible Exposure to Illness During Travel: No - Family History Father Living Status: Age at : 65 Hx Family Cancer: Yes (bladder cancer) Mother Hx Family Respiratory Disorders: Yes (COPD) Brother Hx Family Cardiac Disorders: Yes (DE) Medications and Allergies Clopidogrel [Plavix] 75 mg PO DAILY 01/11/16 [History] Losartan Potassium [Cozaar] 100 mg PO DAILY 01/11/16 [History] Nitroglycerin [Nitrostat] 0.4 mg SL PRN PRN #1 vial 01/12/16 [Rx] Albuterol Sulfate [Ventolin Hfa] 2 puff IH Q6H PRN 04/20/19 [History] Aspirin [Lo-Dose Aspirin EC] 81 mg PO DAILY 04/20/19 [History] Gabapentin [Neurontin] 300 mg PO DAILY 04/20/19 [History] Metoprolol Succinate 100 mg PO DAILY 04/20/19 [History] Tramadol HCl [Ultram] 50 mg PO HS 04/20/19 [History] hydroCHLOROthiazide [Hydrochlorothiazide] 25 mg PO DAILY 04/20/19 [History] Allergy/AdvReac Type Severity Reaction Status Date / Time No Known Allergies Allergy Verified 04/20/19 01:01 All Systems Review: The remainder of the systems were reviewed and are negative Physical Examination Vital Signs, Last 4 Hours Temp Pulse Resp BP Pulse Ox 04/23/19 11:43 96.7 F L 63 16 121/81 95 General: Conversant, No Apparent Distress HEENT: Atraumatic Neck: No JVD, Carotid bruit (Left carotid bruit) Cardiac: Reg Rate and Rhythm, Normal S1 and S2, No Murmur Lungs: Normal Breath Sounds, No Wheeze, Rales, Rhonchi Neuro: Alert and responsive, No focal deficits noted Vascular: Normal capillary refill Abdomen: Soft, Non-tender Skin: No rashes noted on visualized skin Musculoskeletal: No Chest Wall Tenderness Extremities: No Clubbing, No Cyanosis, No Edema, Normal Pulses Results 04/23/19 05:25 04/23/19 05:25 Lab Results, Last 24 hours 04/23/19 04/23/19 05:25 05:25 WBC 12.5 H Hgb 13.6 Hct 41.9 Plt Count 243 Sodium 140 Potassium 3.5 Chloride 101 Carbon Dioxide 30 H BUN 17 Creatinine 0.93 Glucose 96 Calcium 8.8 Consult Discharge Plan - Plan Referrals: Valerie Arriaga CNP [Primary Care Provider] - 04/23/19 9:30 am
--- NOTE | 2019-04-23 13:32 | Electrocardiograph Report ---
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
[2019-04-23] MEDS: traMADol 50 MG TABLET PO SCH (21:23)
[2019-04-24] MEDS: *HR* Heparin 5,000 UNIT/ML VIAL SQ SCH ×3 (05:09→22:07)
[2019-04-24 05:20] LABS: BUN/Creatinine Ratio 17 (6-26); Blood Urea Nitrogen 17 mg/dL (8-23); Calcium 8.8 mg/dL (8.6-10.3); Carbon Dioxide 32 mEq/L (23-29); Chloride 101 mEq/L (98-107); Glucose 90 mg/dL (70-105); Osmolality,Calculated 287 (280-300); Potassium 3.8 mEq/L (3.5-5.1); Sodium 138 mEq/L (136-145); eGFR For African Americans > 60 (> 60); eGFR For Non-African Americans > 60 (> 60)
[2019-04-24 05:38] LABS: Basophils % 0.3 %; Eosinophils # 0.3 K/mcL (0.0-0.6); Eosinophils % 2.3 %; Hematocrit 40.1 % (37.5-50.1); Immature Granulocytes % 0.2 % (0-4); Lymphocytes # 2.7 K/mcL (0.6-4.6); Mean Corpuscular HGB Conc 32.4 g/dL (31.6-35.5); Mean Corpuscular Hemoglobin 29.3 pg (28.0-33.3); Mean Corpuscular Volume 90.3 fL (83.0-100.0); Monocytes # 0.8 K/mcL (0.0-1.3); Monocytes % 6.5 %; Neutrophils # 8.4 K/mcL (1.6-8.9); Platelet Count 241 K/mcL (140-400); Red Blood Count 4.44 M/mcL (4.19-5.50); Red Cell Distribution Width 13.3 % (11.5-14.5); Segmented Neutrophils % 68.7 %; White Blood Count 12.2 K/mcL (4.3-11.1)
--- NOTE | 2019-04-24 07:49 | Cardiothoracic Progress Note ---
Date of Encounter: 04/24/19 Time of Encounter: 07:48 - Assessment and plan (1) Coronary artery disease Current Visit: Yes Status: Acute The patient is a 63-year-old hypertensive man with known CAD, hypercholesterolemia, and COPD. He was transferred to [facility] from [facility] with a diagnosis of stable angina. He un derwent cardiac catheterization and was found to have severe 3 vessel CAD. In particular, the patient has a 70% proximal LAD lesion, 90% mid LAD lesion, a 90% proximal D1 lesion, a 99% proximal OM 2 lesion, an 80% proximal RCA lesion, a 50% mid RCA in-stent restenosis, and a 50% distal RCA lesion. He has been recommended for CABG. I concur with this recommendation. The STS risk calculator reveals an operative mortality risk 1.05%, renal failure risk 0.93%, permanent stroke risk 0.98%, deep sternal wound infection risk 0.24%, and reoperation risk 1.63%. The patient understands the procedure, benefits, alternatives, and risks as outlined above. He had been on Plavix until 04/20/2019. The patient will need a carotid duplex to evaluate his left carotid bruit. He is tentatively scheduled for CABG on , 04/26/2019. The assessment and plan as outlined above was discussed with the patient and/or family members who expressed understanding and agreement. All questions were answered. Qualifiers: Coronary Disease-Associated Artery/Lesion type: [place] artery [place] vs. transplanted heart: [place] heart Associated angina: angina presence unspecified Qualified Code(s): I25.10 - Atherosclerotic heart disease of [place] coronary artery without angina pectoris - Subjective Interval history: The patient remained hemodynamically stable overnight. He has had no further chest pain. He has no complaints. Vital Signs, Last 4 Hours Temp Pulse Resp BP Pulse Ox 04/24/19 07:06 98.7 F 65 16 109/65 94 04/24/19 03:55 98.1 F 66 16 150/90 98 Weight 04/22/19 04/23/19 04/24/19 23:59 23:59 23:59 Weight 88.4 kg 88.5 kg - Physical Examination General: Conversant, No Apparent Distress Neck: No JVD, Normal carotid pulses Cardiac: Reg Rate and Rhythm, Normal S1 and S2, No Murmur Lungs: Normal Breath Sounds, No Wheeze, Rales, Rhonchi Neuro: Alert and responsive, No focal deficits noted Vascular: Normal capillary refill Musculoskeletal: No Chest Wall Tenderness Extremities: No Clubbing, No Cyanosis, No Edema - Labs 04/24/19 04:16 04/24/19 04:16 Lab Results, Last 24 hours 04/24/19 04/24/19 04:16 04:16 WBC 12.2 H Hgb 13.0 Hct 40.1 Plt Count 241 Sodium 138 Potassium 3.8 Chloride 101 Carbon Dioxide 32 H BUN 17 Creatinine 1.02 Glucose 90 Calcium 8.8 Consult Discharge Plan - Plan Referrals: Valerie Arriaga CNP [Primary Care Provider] - 04/23/19 9:30 am
--- NOTE | 2019-04-24 09:27 | Internal Med Progress Note ---
Hospitalist Progress Note - Encounter Date of Encounter: 04/24/19 Time of Encounter: 09:25 - Subjective Interval History: Patient seen and examined in the room. He reported absence of chest pain, shortness of breath, palpitation, or syncope overnight. - Exam Vitals: Temp Pulse Resp BP Pulse Ox 98.7 F 65 16 109/65 94 04/24/19 07:06 04/24/19 07:06 04/24/19 07:06 04/24/19 07:06 04/24/19 07:06 Exam: General appearance: Present: A&O X 3, pleasant, no acute distress - Head Head exam: Present: atraumatic, normocephalic - Eye Eye exam: Present: PERRL, conjuntiva pink, sclera anicteric Pupils: Present: PERRL - Neck Neck exam general surgery: Present: supple, trachea midline. Absent: lymphadenopathy - Respiratory Respiratory exam: Present: chest wall tenderness, CTAB. Absent: accessory muscle use, rales, rhonchi, wheezes - Cardiovascular Cardiovascular exam: Present: RRR, +S1, +S2. Absent: diastolic murmur, gallop, rubs, systolic murmur - GI/Abdominal GI/Abdominal exam: Present: normal bowel sounds, soft, no peritoneal signs. Absent: distended, tenderness - Extremities Exam Extremities exam: Present: warm, radial pulses palpable and symmetrical. Absent: calf tenderness, cyanotic, pedal edema - Neurological Exam Neurological exam: Present: CN II-XII intact, oriented X3, no focal deficits. Absent: pronater drift, facial droop, speech deficit - Skin Skin exam: Present: dry, intact - Assessment and Plan (1) COPD (chronic obstructive pulmonary disease) Current Visit: No Status: Chronic Assessment and Plan: History of COPD. No evidence of acute exacerbation. Patient continues to smoke half pack a day. Discussed smoking cessation. -Duo nebs as needed -Nicotine patch 04/21 Does not appear to be in acute exacerbation at this time continue with bronchodilators Discussed with the patient the importance of smoking cessation Continue nicotine patch 04/23-04/24 Respiratory status stable, continue current treatment. (2) Coronary artery disease Current Visit: Yes Status: Acute Assessment and Plan: presented with chest pain. 04/20/2019 C showed multivessel disease. TTE with preserved EF. Chest pain now resolved. Continue ASA, statin, BB, ARB and nitrate. Plavix held for washout. Cardiology and CT surgery following. Plan for CABG 04/26. (3) DVT prophylaxis Current Visit: Yes Status: Acute Assessment and Plan: Heparin - Time Spent with Patient Total time spent is greater than 50% in coordination of care (as documented) at patient's floor/unit and/or counseling patient: Greater than 35 minutes Plan of Care Discussed with: patient Internal Medicine: Result - Labs CBC & Chem 7: 04/24/19 04:16 04/24/19 04:16 Labs: Short CBC 04/24/19 Range/Units 04:16 WBC 12.2 H (4.3-11.1) K/mcL Hgb 13.0 (12.9-16.9) g/dL Hct 40.1 (37.5-50.1) % Plt Count 241 (140-400) K/mcL Neutrophils # 8.4 (1.6-8.9) K/mcL BMP 04/24/19 04:16 Sodium 138 Potassium 3.8 Chloride 101 Carbon Dioxide 32 H BUN 17 Creatinine 1.02 Glucose 90 Calcium 8.8 - ABG Interpretation ABG results: PT/INR, D-dimer PT 11.5 Seconds (9.4-12.1) 04/20/19 09:12 - Impressions Impressions Chest X-Ray 04/23/19 12:27 IMPRESSION: No acute cardiopulmonary disease. D/ / Jyothi Sow MD / Joythi Sow MD Interpreting Provider: Jyothi Sow MD Consult Discharge Plan - Plan Referrals: Valerie Arriaga CNP [Primary Care Provider] - 04/23/19 9:30 am (1) COPD (chronic obstructive pulmonary disease) Qualifiers: COPD type: unspecified COPD Qualified Code(s): J44.9 - Chronic obstructive pulmonary disease, unspecified (2) Coronary artery disease Qualifiers: Coronary Disease-Associated Artery/Lesion type: [place] artery [place] vs. transplanted heart: [place] heart Associated angina: angina presence unspecified Qualified Code(s): I25.10 - Atherosclerotic heart disease of [place] coronary artery without angina pectoris
--- NOTE | 2019-04-24 09:32 | Anesthesia Evaluation PreOp ---
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: Other (depression, RLS) Other Medical History: Denies Any Significant HX Anesthesia History: No Prior Anesthetic Complications, Past Anesthesia Alcohol Use: none Drug use: none Medications and Allergies Clopidogrel [Plavix] 75 mg PO DAILY 01/11/16 [History] Losartan Potassium [Cozaar] 100 mg PO DAILY 01/11/16 [History] Nitroglycerin [Nitrostat] 0.4 mg SL PRN PRN #1 vial 01/12/16 [Rx] Albuterol Sulfate [Ventolin Hfa] 2 puff IH Q6H PRN 04/20/19 [History] Aspirin [Lo-Dose Aspirin EC] 81 mg PO DAILY 04/20/19 [History] Gabapentin [Neurontin] 300 mg PO DAILY 04/20/19 [History] Metoprolol Succinate 100 mg PO DAILY 04/20/19 [History] Tramadol HCl [Ultram] 50 mg PO HS 04/20/19 [History] hydroCHLOROthiazide [Hydrochlorothiazide] 25 mg PO DAILY 04/20/19 [History] Allergy/AdvReac Type Severity Reaction Status Date / Time No Known Allergies Allergy Verified 04/20/19 01:01 - Meds/Allergy Pre-op Review Medications Reviewed: Yes Allergies Reviewed: Yes Beta Blockers on Current Med List: Yes (toprolol) If Beta Blockers taken, Date/Time (Last Dose taken): today 0558 Anesthesia Results - Labs 04/26/19 00:39 04/26/19 00:39 - Imaging Additional studies: Cath: Indications: Non-Stemi ACS > 24 hrs Impressions: There is severe three vessel coronary artery disease. Previously stented mid RCA patent. The left ventricle is normal and has normal contractility EF 55% Recommendations: Optimal medical therapy of patient's disease. Aggressive risk factor modification. Evaluate for coronary artery bypass surgery. LV Ventriculography Ejection Method: LV Gram Ejection Fraction: 55% Wall Motion: LANE Anterobasal Normal Anterolateral Normal Apical: Normal Inferoapical Normal Inferobasal Normal Coronary Dominance: right Lesion Findings/Interventions * Left Main Coronary Artery The LMCA is angiographically free of disease. * Left Anterior Descending There is a 70% stenosis in the Proximal LAD- calcified, diffusely diseased. There is a 90% stenosis in the Mid LAD. There is a 90% stenosis in the proximal 1st Diagonal at the ostium. * Circumflex There is a 30% stenosis in the Proximal Circumflex. There is a 30% stenosis in the 1st Marginal. There is a 99% stenosis in the 2nd Marginal. * Right Coronary Artery There is a 80% stenosis in the Proximal RCA. There is a 50% in-stent restenosis in the Mid RCA. There is a 50% stenosis in the Distal RCA. Echo: Measurements: BP: 141/ 98 2D Normal Values RVIDd: 2.90 cm <2.7 cm IVSd: .90 cm 0.6 - 1.0 cm LVIDd: 4.70 cm 3.7 - 5.6 cm LVPWd: 1.10 cm 0.6 - 1.1 cm LVIDs: 3.10 cm 1.5 - 3.6 cm AO: 3.00 cm < 4.0 cm LA: 3.10 cm 2.0 - 4.0cm %FS: 34.00 cm >25 % LVOT Diam: 2.00 cm LA volume: 74.5 Mitral Valve Pressure Time: 40.00 msec Valve Area: 5.50 cm2 Peak E: .85 m/sec Peak A: .79 m/sec E/A Ratio: 1.1 Peak E' Lat Isidro: 10.4 cm/s Peak E' Med Isidro: 4.68 cm/s E/E' Lat Ratio: 8.1 E/E' Med Ratio: 18.1 LVOT Peak Isidro: 1.01 m/sec Mean Isidro: .60 m/sec Peak Grad: 4.00 mmHg Mean Grad: 2.00 mmHg Tricuspid Valve TV Regurg Peak Grad: 4.00mmHg TV Regurg Peak Isidro: 1.05m/sec Updated by Rafita Doe DO, FACSalvador, POLA, LACY on 04/21/2019 12:17:32 PM electronically signed on 04/21/2019 12:18:04 PM with status of Final Wall Motion Villegas: 1=Normal, 2=Hypokinesis, 3=Akinesis, 4=Dyskinesis, 5=Aneurysmal, 6=Hyperkinetic, X=Not Visualized (Blank)=Missing [id number]^ProVation^FT^PDF EV/EV echocardiogram Impressions: LVEF 60-65%. Normal LV chamber size, wall thickness and function. Mild left ventricular diastolic dysfunction. Normal right ventricular structure and function. Unable to estimate RVSP due to lack of TR jet. No significant valvular dysfunction. Left Ventricular Wall Motion: Rest Echo Findings All wall segments showed normal motion. Anesthesia Exam Height: 170cm Weight: 89kg - HEENT Pupil (Motor): EOMI Mallampati: II Teeth: Edentulous Oral Opening: Greater than 3 - CHARGE OUT CLERK LOC: Oriented CHARGE OUT CLERK Motor: Normal RUE, Normal LUE, Normal RLE, Normal LLE, Normal Face CHARGE OUT CLERK Sensory: Normal: RUE, LUE, RLE, LLE, Face - Cardiac Rhythm: Regular Murmur: None - Pulmonary Breath Sounds: bilateral Clear Respiratory Effort: Symmetrical Anesthesia Assess/Plan ASA Score: 4 Level of consciousness: Cooperative, Oriented Anesthetic Plan: General Monitoring Plan: Standard Monitors, A-Line, PAC, GAL Recovery Plan: ICU (agrees to GA, lines, GAL and blood products)
[2019-04-24] MEDS: Gabapentin 300 MG CAPSULE PO SCH (10:19)
[2019-04-24] MEDS: hydroCHLOROthiazide 25 MG TABLET PO SCH (10:20)
[2019-04-24] MEDS: Aspirin Enteric Coated 81 MG Tablet PO SCH (10:20)
[2019-04-24] MEDS: Nicotine 14 MG PATCH.TD24 TD SCH (10:20)
[2019-04-24] MEDS: Metoprolol XL (24 HR) Succ 50 MG TAB.ER.24H PO SCH ×2 (10:20→22:07)
[2019-04-24] MEDS: Isosorbide MONOnitrate (24 HR) 30 MG TAB.ER.24H PO SCH (10:20)
[2019-04-24] MEDS: traMADol 50 MG TABLET PO SCH (22:07)
[2019-04-25 05:23] LABS: Hematocrit 39.9 % (37.5-50.1); Hemoglobin 12.9 g/dL (12.9-16.9); Mean Corpuscular HGB Conc 32.3 g/dL (31.6-35.5); Mean Corpuscular Hemoglobin 29.3 pg (28.0-33.3); Mean Corpuscular Volume 90.5 fL (83.0-100.0); Mean Platelet Volume 10.5 fL (9.4-12.4); Platelet Count 228 K/mcL (140-400); Red Blood Count 4.41 M/mcL (4.19-5.50); Red Cell Distribution Width 13.3 % (11.5-14.5); White Blood Count 9.2 K/mcL (4.3-11.1)
[2019-04-25] MEDS: *HR* Heparin 5,000 UNIT/ML VIAL SQ SCH ×3 (05:29→21:35)
[2019-04-25 05:43] LABS: BUN/Creatinine Ratio 14 (6-26); Blood Urea Nitrogen 17 mg/dL (8-23); Calcium 8.7 mg/dL (8.6-10.3); Carbon Dioxide 32 mEq/L (23-29); Chloride 102 mEq/L (98-107); Glucose 97 mg/dL (70-105); Osmolality,Calculated 287 (280-300); Potassium 3.9 mEq/L (3.5-5.1); Sodium 138 mEq/L (136-145); eGFR For African Americans > 60 (> 60); eGFR For Non-African Americans > 60 (> 60)
[2019-04-25] MEDS ORDERED: Insulin Human Regular 100 UNIT in 0.9 % Sodium Chloride 100 ML IV PRN (07:45)
[2019-04-25] MEDS ORDERED: Norepinephrine 4 MG in D5% in Water 250 ML IVC PRN (07:45)
--- NOTE | 2019-04-25 08:00 | Cardiothoracic Progress Note ---
Date of Encounter: 04/25/19 Time of Encounter: 07:59 - Assessment and plan (1) Coronary artery disease Current Visit: Yes Status: Acute The patient is a 63-year-old hypertensive man with known CAD, hypercholesterolemia, and COPD. He was transferred to [facility] from [facility] with a diagnosis of stable angina. He un derwent cardiac catheterization and was found to have severe 3 vessel CAD. In particular, the patient has a 70% proximal LAD lesion, 90% mid LAD lesion, a 90% proximal D1 lesion, a 99% proximal OM 2 lesion, an 80% proximal RCA lesion, a 50% mid RCA in-stent restenosis, and a 50% distal RCA lesion. He has been recommended for CABG. I concur with this recommendation. The STS risk calculator reveals an operative mortality risk 1.05%, renal failure risk 0.93%, permanent stroke risk 0.98%, deep sternal wound infection risk 0.24%, and reoperation risk 1.63%. The patient understands the procedure, benefits, alternatives, and risks as outlined above. He had been on Plavix until 04/20/2019. The patient will need a carotid duplex to evaluate his left carotid bruit. He is tentatively scheduled for CABG on , 04/26/2019. The assessment and plan as outlined above was discussed with the patient and/or family members who expressed understanding and agreement. All questions were answered. Qualifiers: Coronary Disease-Associated Artery/Lesion type: [place] artery [place] vs. transplanted heart: [place] heart Associated angina: angina presence unspecified Qualified Code(s): I25.10 - Atherosclerotic heart disease of [place] coronary artery without angina pectoris - Subjective Interval history: The patient remained hemodynamically stable overnight. He has had no further chest pain. He has no complaints. Vital Signs, Last 4 Hours Temp Pulse Resp BP Pulse Ox 04/25/19 07:26 99.0 F 66 16 103/54 99 04/25/19 04:20 98.6 F 69 16 131/73 96 Weight 04/23/19 04/24/19 04/25/19 23:59 23:59 23:59 Weight 88.5 kg 87.6 kg - Physical Examination General: Conversant, No Apparent Distress Neck: No JVD, Normal carotid pulses Cardiac: Reg Rate and Rhythm, Normal S1 and S2, No Murmur Lungs: Normal Breath Sounds, No Wheeze, Rales, Rhonchi Neuro: Alert and responsive, No focal deficits noted Vascular: Normal capillary refill Musculoskeletal: No Chest Wall Tenderness Extremities: No Clubbing, No Cyanosis, No Edema - Labs 04/25/19 04:47 04/25/19 04:47 Lab Results, Last 24 hours 04/25/19 04/25/19 04:47 04:47 WBC 9.2 Hgb 12.9 Hct 39.9 Plt Count 228 Sodium 138 Potassium 3.9 Chloride 102 Carbon Dioxide 32 H BUN 17 Creatinine 1.18 Glucose 97 Calcium 8.7 Consult Discharge Plan - Plan Referrals: Valerie Arriaga CNP [Primary Care Provider] - 04/23/19 9:30 am
[2019-04-25] MEDS: Chlorhexidine Rinse 15 ML MOUTHWASH MM SCH ×2 (08:18→21:35)
[2019-04-25] MEDS: Isosorbide MONOnitrate (24 HR) 30 MG TAB.ER.24H PO SCH (08:18)
[2019-04-25] MEDS: hydroCHLOROthiazide 25 MG TABLET PO SCH (08:18)
[2019-04-25] MEDS: Metoprolol XL (24 HR) Succ 50 MG TAB.ER.24H PO SCH ×2 (08:18→21:36)
[2019-04-25] MEDS: Aspirin Enteric Coated 81 MG Tablet PO SCH (08:18)
[2019-04-25] MEDS: Nicotine 14 MG PATCH.TD24 TD SCH (08:19)
[2019-04-25] MEDS: Gabapentin 300 MG CAPSULE PO SCH (08:19)
--- NOTE | 2019-04-25 09:29 | Internal Med Progress Note ---
Hospitalist Progress Note - Encounter Date of Encounter: 04/25/19 Time of Encounter: 09:27 - Subjective Interval History: Patient seen and examined in the room. He reported absence of chest pain, shortness of breath, palpitation, or syncope overnight. - Exam Vitals: Temp Pulse Resp BP Pulse Ox 99.0 F 66 16 103/54 99 04/25/19 07:26 04/25/19 07:26 04/25/19 07:26 04/25/19 07:26 04/25/19 07:26 Exam: General appearance: Present: A&O X 3, pleasant, no acute distress - Head Head exam: Present: atraumatic, normocephalic - Eye Eye exam: Present: PERRL, conjuntiva pink, sclera anicteric Pupils: Present: PERRL - Neck Neck exam general surgery: Present: supple, trachea midline. Absent: lymphadenopathy - Respiratory Respiratory exam: Present: chest wall tenderness, CTAB. Absent: accessory muscle use, rales, rhonchi, wheezes - Cardiovascular Cardiovascular exam: Present: RRR, +S1, +S2. Absent: diastolic murmur, gallop, rubs, systolic murmur - GI/Abdominal GI/Abdominal exam: Present: normal bowel sounds, soft, no peritoneal signs. Absent: distended, tenderness - Extremities Exam Extremities exam: Present: warm, radial pulses palpable and symmetrical. Absent: calf tenderness, cyanotic, pedal edema - Neurological Exam Neurological exam: Present: CN II-XII intact, oriented X3, no focal deficits. Absent: pronater drift, facial droop, speech deficit - Skin Skin exam: Present: dry, intact - Assessment and Plan (1) COPD (chronic obstructive pulmonary disease) Current Visit: No Status: Chronic Assessment and Plan: History of COPD. No evidence of acute exacerbation. Patient continues to smoke half pack a day. Discussed smoking cessation. -Duo nebs as needed -Nicotine patch 04/21 Does not appear to be in acute exacerbation at this time continue with bronchodilators Discussed with the patient the importance of smoking cessation Continue nicotine patch 04/23-04/24 Respiratory status stable, continue current treatment. (2) Coronary artery disease Current Visit: Yes Status: Acute Assessment and Plan: presented with chest pain. 04/20/2019 C showed multivessel disease. TTE with preserved EF. Chest pain now resolved. Continue ASA, statin, BB, ARB and nitrate. Plavix held for washout. Cardiology and CT surgery following. Plan for CABG 04/26. (3) DVT prophylaxis Current Visit: Yes Status: Acute Assessment and Plan: Heparin - Time Spent with Patient Total time spent is greater than 50% in coordination of care (as documented) at patient's floor/unit and/or counseling patient: Greater than 35 minutes Plan of Care Discussed with: patient Internal Medicine: Result - Labs CBC & Chem 7: 04/25/19 04:47 04/25/19 04:47 Labs: Short CBC 04/25/19 Range/Units 04:47 WBC 9.2 (4.3-11.1) K/mcL Hgb 12.9 (12.9-16.9) g/dL Hct 39.9 (37.5-50.1) % Plt Count 228 (140-400) K/mcL BMP 04/25/19 04:47 Sodium 138 Potassium 3.9 Chloride 102 Carbon Dioxide 32 H BUN 17 Creatinine 1.18 Glucose 97 Calcium 8.7 - ABG Interpretation ABG results: PT/INR, D-dimer PT 11.5 Seconds (9.4-12.1) 04/20/19 09:12 Consult Discharge Plan - Plan Referrals: Valerie Arriaga CNP [Primary Care Provider] - 04/23/19 9:30 am (1) COPD (chronic obstructive pulmonary disease) Qualifiers: COPD type: unspecified COPD Qualified Code(s): J44.9 - Chronic obstructive pulmonary disease, unspecified (2) Coronary artery disease Qualifiers: Coronary Disease-Associated Artery/Lesion type: [place] artery [place] vs. transplanted heart: [place] heart Associated angina: angina presence unspecified Qualified Code(s): I25.10 - Atherosclerotic heart disease of [place] coronary artery without angina pectoris
[2019-04-25] MEDS: traMADol 50 MG TABLET PO SCH (21:35)
--- NOTE | 2019-04-25 21:46 | Event Note ---
Date of Encounter: 04/25/19 Time of Encounter: 19:27 Notified by nurse of patient complaining of chest pain and had been administered nitroglycerin 1. Ordered stat EKG. Pain completely resolved with nitroglycerin 1, vitals stable. EKG with no changes noted. Nurse to continue to monitor and notify of any changes.
[2019-04-26 01:20] LABS: Hematocrit 40.7 % (37.5-50.1); Hemoglobin 13.3 g/dL (12.9-16.9); Mean Corpuscular HGB Conc 32.7 g/dL (31.6-35.5); Mean Corpuscular Hemoglobin 29.4 pg (28.0-33.3); Mean Platelet Volume 10.5 fL (9.4-12.4); Platelet Count 229 K/mcL (140-400); Red Blood Count 4.52 M/mcL (4.19-5.50); Red Cell Distribution Width 13.3 % (11.5-14.5); White Blood Count 7.9 K/mcL (4.3-11.1)
[2019-04-26 01:40] LABS: BUN/Creatinine Ratio 16 (6-26); Blood Urea Nitrogen 18 mg/dL (8-23); Carbon Dioxide 31 mEq/L (23-29); Chloride 97 mEq/L (98-107); Glucose 121 mg/dL (70-105); Osmolality,Calculated 281 (280-300); Potassium 3.3 mEq/L (3.5-5.1); Sodium 134 mEq/L (136-145); eGFR For African Americans > 60 (> 60); eGFR For Non-African Americans > 60 (> 60)
[2019-04-26] MEDS ORDERED: Ondansetron 4 MG/2 ML VIAL IVP ONE (05:52)
[2019-04-26] MEDS: Aspirin Enteric Coated 81 MG Tablet PO SCH (05:58)
[2019-04-26] MEDS: Metoprolol XL (24 HR) Succ 50 MG TAB.ER.24H PO SCH ×2 (05:58→19:18)
[2019-04-26] MEDS ORDERED: Chlorhexidine Rinse 15 ML MOUTHWASH MM SCH ×2 (06:00→21:00)
[2019-04-26] MEDS ORDERED: Nitroglycerin 25 MG/250 ML INFUS..BTL IVC ONE (06:35)
[2019-04-26] MEDS ORDERED: NiCARdipine 2.5 MG/10 ML Syringe IVPB ONE ×2 (06:35→09:38)
[2019-04-26] MEDS ORDERED: *HR* Rocuronium Bromide 50 MG/5 ML VIAL ONE ×2 (06:39→10:39)
[2019-04-26] MEDS ORDERED: *HR* PHENYLEPHRINE 1,000 MCG/10 ML SYRINGE IVP ONE (06:39)
[2019-04-26] MEDS ORDERED: *HR* Etomidate 20 MG/10 ML AMPUL IVP ONE (06:39)
[2019-04-26] MEDS ORDERED: Famotidine 20 MG/2 ML VIAL ONE (06:39)
[2019-04-26] MEDS ORDERED: Tranexamic Acid 1,000 MG/10 ML VIAL ONE ×2 (06:40→10:39)
[2019-04-26] MEDS ORDERED: Protamine Sulfate 250 MG/25 ML VIAL IVP ONE (06:40)
[2019-04-26] MEDS ORDERED: Calcium Gluconate 1,000 MG/10 ML VIAL ONE (06:40)
[2019-04-26] MEDS ORDERED: *HR* Midazolam HCl 5 MG/5 ML VIAL IVP ONE (06:44)
[2019-04-26] MEDS ORDERED: *HR* FentaNYL (PF) 1,000 MCG/20 ML VIAL ONE (06:44)
[2019-04-26] MEDS: *HR* Heparin 5,000 UNIT/ML VIAL SQ SCH ×3 (06:47→19:18)
[2019-04-26] MEDS ORDERED: CeFAZolin Syr 2,000MG/20 ML 2,000 MG/20 ML SYRINGE IVPB ONE (07:00)
[2019-04-26] MEDS ORDERED: Dextrose 50 % in Water (Vial) 30 ML, Sodium Bicarbonate 20 MEQ, Lidocaine 1% 5 ML, Insu... TH ONE ×3 (07:45)
[2019-04-26] MEDS ORDERED: Heparin 15,000 UNIT in 0.9 % Sodium Chloride 500 ML IV ONE (07:45)
[2019-04-26] MEDS ORDERED: Dextrose 50 % in Water (Vial) 30 ML, Sodium Bicarbonate 20 MEQ, Potassium Chloride 15 M... TH ONE (07:45)
[2019-04-26 08:36] LABS: ABG Base Excess 3 mEq/L (-2 to 3); ABG Chloride 100 mEq/L (98-107); ABG Glucose 89 mg/dL (60-95); ABG HCO3 31 mEq/L (21-27); ABG Ionized Calcium 1.02 mmol/L (1.15-1.35); ABG Oxygen Saturation 100 % (95-98); ABG PCO2 58 mmHg (35-45); ABG PH 7.33 pH Units (7.32-7.45); ABG PO2 326 mmHg (85-104); ABG TCO2 32 mEq/L (20-26)
[2019-04-26] MEDS ORDERED: niCARdipine 20 MG/200 ML MLS IVC ONE (08:45)
--- NOTE | 2019-04-26 08:54 | Anesthesia Procedures ---
Date of Encounter: 04/26/19 Time of Encounter: 07:55 Procedures: Anesthesia - Arterial Line Consent obtained: written consent Time out performed: Yes Sedation: Versed (mg): 2 Sedation: Fentanyl (mcg): 100 Supplemental Oxygen via Nasal Cannula (L/min): 2 Amount of Anesthetic used (mls): 1 Size (Gauge): 20 Length (inches): 5 Technique Used: sterile prep, guide wire technique, direct puncture technique Post-Procedure: line taped into place, dry sterile dressing placed Patient tolerated procedure: well, no complications Complications: none Site: Radial L - Central Line Placement Right IJ Consent obtained: written consent Time out performed: Yes Patient placed on monitor/pulse ox: Yes prep: mask, gown, gloves Central line prep: Chlorhexidine scrub, sterile drapes applied Ultrasound used for placement: Yes Technique: Seldinger Lumen Inserted: Introducer Size / Length: 9 Fr / 10 cm Post procedure: sutured in place, good blood return, all ports aspirated, flushed, capped, sterile dressing applied Patient tolerated procedure: well, no complications Complications: none Comments: introducer placed easily, swan required several attempts, would get into RV with difficulty getting into PA. Able to wedge at 60cm, no arrythmias with placement
--- NOTE | 2019-04-26 09:06 | Internal Med Progress Note ---
Hospitalist Progress Note - Encounter Date of Encounter: 04/26/19 Time of Encounter: 09:03 - Subjective Interval History: Patient went to the OR for surgery. I will return to see him after he comes back from surgery. He reported one episode of chest pain last night, received 1 dose of nitroglycerin, chest pain resolved. - Exam Vitals: Temp Pulse Resp BP Pulse Ox 99.3 F 64 16 125/94 94 04/26/19 06:53 04/26/19 06:53 04/26/19 06:53 04/26/19 06:53 04/26/19 06:53 Exam: General appearance: Present: A&O X 3, pleasant, no acute distress - Head Head exam: Present: atraumatic, normocephalic - Eye Eye exam: Present: PERRL, conjuntiva pink, sclera anicteric Pupils: Present: PERRL - Neck Neck exam general surgery: Present: supple, trachea midline. Absent: lymp hadenopathy - Respiratory Respiratory exam: Present: chest wall tenderness, CTAB. Absent: accessory muscle use, rales, rhonchi, wheezes - Cardiovascular Cardiovascular exam: Present: RRR, +S1, +S2. Absent: diastolic murmur, gallop, rubs, systolic murmur - GI/Abdominal GI/Abdominal exam: Present: normal bowel sounds, soft, no peritoneal signs. Absent: distended, tenderness - Extremities Exam Extremities exam: Present: warm, radial pulses palpable and symmetrical. Absent: calf tenderness, cyanotic, pedal edema - Neurological Exam Neurological exam: Present: CN II-XII intact, oriented X3, no focal deficits. Absent: pronater drift, facial droop, speech deficit - Skin Skin exam: Present: dry, intact - Assessment and Plan (1) COPD (chronic obstructive pulmonary disease) Current Visit: No Status: Chronic Assessment and Plan: History of COPD. No evidence of acute exacerbation. Patient continues to smoke half pack a day. Discussed smoking cessation. -Duo nebs as needed -Nicotine patch 04/21 Does not appear to be in acute exacerbation at this time continue with bronchodilators Discussed with the patient the importance of smoking cessation Continue nicotine patch 04/23-04/26 Respiratory status stable, continue current treatment. (2) Coronary artery disease Current Visit: Yes Status: Acute Assessment and Plan: presented with chest pain. 04/20/2019 [facility] showed multivessel disease. TTE with preserved EF. Chest pain now resolved. Continue ASA, statin, BB, ARB and nitrate. Plavix held for washout. Cardiology and CT surgery following. Reported 1 episode of chest pain last night, relieved by sublingual nitroglycerin. Plan for CABG today. (3) DVT prophylaxis Current Visit: Yes Status: Acute Assessment and Plan: Heparin - Time Spent with Patient Total time spent is greater than 50% in coordination of care (as documented) at patient's floor/unit and/or counseling patient: Greater than 35 minutes Plan of Care Discussed with: patient Internal Medicine: Result - Labs CBC & Chem 7: 04/26/19 00:39 04/26/19 00:39 Labs: Short CBC 04/26/19 Range/Units 00:39 WBC 7.9 (4.3-11.1) K/mcL Hgb 13.3 (12.9-16.9) g/dL Hct 40.7 (37.5-50.1) % Plt Count 229 (140-400) K/mcL BMP 04/26/19 00:39 Sodium 134 L Potassium 3.3 L Chloride 97 L Carbon Dioxide 31 H BUN 18 Creatinine 1.14 Glucose 121 H Calcium 9.0 - ABG Interpretation ABG results: ABG ABG pH 7.33 pH Units (7.32-7.45) 04/26/19 08:04 ABG pCO2 58 mmHg (35-45) H 04/26/19 08:04 ABG pO2 326 mmHg (85-104) H 04/26/19 08:04 ABG O2 Saturation 100 % (95-98) H 04/26/19 08:04 PT/INR, D-dimer PT 11.5 Seconds (9.4-12.1) 04/20/19 09:12 Consult Discharge Plan - Plan Referrals: Valerie Arriaga, VARUN [Primary Care Provider] - 04/23/19 9:30 am (1) COPD (chronic obstructive pulmonary disease) Qualifiers: COPD type: unspecified COPD Qualified Code(s): J44.9 - Chronic obstructive pulmonary disease, unspecified (2) Coronary artery disease Qualifiers: Coronary Disease-Associated Artery/Lesion type: [place] artery [place] vs. transplanted heart: [place] heart Associated angina: angina presence unspecified Qualified Code(s): I25.10 - Atherosclerotic heart disease of [place] coronary artery without angina pectoris
[2019-04-26 09:43] LABS: ABG Base Excess 0 mEq/L (-2 to 3); ABG Chloride 98 mEq/L (98-107); ABG Glucose 118 mg/dL (60-95); ABG HCO3 26 mEq/L (21-27); ABG Ionized Calcium 1.09 mmol/L (1.15-1.35); ABG Oxygen Saturation 100 % (95-98); ABG PCO2 42 mmHg (35-45); ABG PH 7.39 pH Units (7.32-7.45); ABG PO2 340 mmHg (85-104); ABG TCO2 27 mEq/L (20-26)
[2019-04-26 09:56] LABS: ABG Base Excess 2 mEq/L (-2 to 3); ABG Chloride 94 mEq/L (98-107); ABG Glucose 194 mg/dL (60-95); ABG HCO3 25 mEq/L (21-27); ABG Ionized Calcium 0.98 mmol/L (1.15-1.35); ABG Oxygen Saturation 100 % (95-98); ABG PCO2 33 mmHg (35-45); ABG PH 7.49 pH Units (7.32-7.45); ABG PO2 373 mmHg (85-104); ABG TCO2 26 mEq/L (20-26)
[2019-04-26 10:32] LABS: ABG Base Excess 4 mEq/L (-2 to 3); ABG Chloride 95 mEq/L (98-107); ABG Glucose 201 mg/dL (60-95); ABG HCO3 28 mEq/L (21-27); ABG Oxygen Saturation 100 % (95-98); ABG PCO2 40 mmHg (35-45); ABG PH 7.46 pH Units (7.32-7.45); ABG PO2 346 mmHg (85-104); ABG TCO2 30 mEq/L (20-26)
[2019-04-26 10:58] LABS: ABG Base Excess 3 mEq/L (-2 to 3); ABG Chloride 95 mEq/L (98-107); ABG Glucose 172 mg/dL (60-95); ABG HCO3 27 mEq/L (21-27); ABG Oxygen Saturation 100 % (95-98); ABG PCO2 40 mmHg (35-45); ABG PH 7.44 pH Units (7.32-7.45); ABG PO2 321 mmHg (85-104); ABG TCO2 28 mEq/L (20-26)
[2019-04-26] MEDS ORDERED: Albumin Human 5% 50.0 GM/1,000 ML VIAL ONE (11:01)
[2019-04-26 11:53] LABS: ABG Base Excess 1 mEq/L (-2 to 3); ABG Chloride 98 mEq/L (98-107); ABG Glucose 114 mg/dL (60-95); ABG HCO3 25 mEq/L (21-27); ABG Ionized Calcium 1.41 mmol/L (1.15-1.35); ABG Oxygen Saturation 100 % (95-98); ABG PCO2 38 mmHg (35-45); ABG PH 7.43 pH Units (7.32-7.45); ABG PO2 291 mmHg (85-104); ABG TCO2 26 mEq/L (20-26)
--- NOTE | 2019-04-26 12:13 | Operative Note ---
Date of procedure: 04/26/19 Pre-op diagnosis: CAD Post-op diagnosis: same Procedure: 1. CABG5 (GILLIS to LAD, SVG to D1, sequential SVG to OM1 then OM 2, SVG to PDA). 2. Endoscopic vein harvesting, greater saphenous vein from right lower extremity. Implants: None. Complications: None. Anesthesia: GETA Surgeon: Blanco Walker Was there an rehab assistant present: Yes Allocations Clerk: Sandoval De Guzman Estimated blood loss (cc): 500 Specimen: None. Condition: stable Disposition: ICU Procedure in Detail: INDICATIONS FOR OPERATION: The patient is a 63 year old hypertensive man with known CAD, hypercholes terolemia, and COPD. The patient's cardiac history dates back to 2008 which time he underwent PCI with RCA stent placement. He states that during the last 1-2 months he has had increasing shortness of breath and fatigue. He has been unable to work in his yard as he had in previous years because of the fatigue. On , 04/19/2019, the patient had severe substernal chest pain radiating to his jaws, shortness of breath, and dyspnea on exertion while driving. He took sublingual nitroglycerin with some relief; however, his [id number] convinced him to seek medical attention at [facility]. He was found to have slightly elevated troponin I levels and was treated medically prior to transfer to [facility] for further cardiac care. The patient underwent a transthoracic echocardiogram which revealed an LVEF 60- 65% with normal left ventricular chamber size, wall thickness, and function. No significant valvular dysfunction was noted. Subsequent cardiac catheterization revealed severe 3 vessel CAD. In particular, the patient has a 70% proximal LAD lesion, a 90% mid LAD lesion, a 90% proximal D1 lesion, a 30% proximal LCx lesion, a 30% proximal OM1 lesion, a 99% proximal OM 2 lesion, an 80% proximal RCA lesion, a 50% in-stent restenosis in the mid RCA, and a 50% distal RCA lesion. He has been recommended for CABG. FINDINGS AT OPERATION: The aorta was of normal caliber without calcification. The coronary arteries measure approximately 1.5-2 mm in diameter, except the LAD which was deep intramyocardial throughout most of its course and measured on millimeters in diameter when it became epicardial and the distal third. The greater saphenous vein was harvested endoscopically from the right lower extremity from the mid calf to the groin and was of fair quality, being somewhat thickened in areas. The total bypass time was 109 minutes, cross-clamp time 67 minutes, intentional hypothermia 35.6 degrees centigrade. DESCRIPTION OF OPERATION: After obtaining informed operative consent from the patient, he was taken to the operating room where a satisfactory general endotracheal anesthetic was induced. Appropriate monitoring lines placed, the patient's chest, abdomen, and lower extremities were prepped and draped in a sterile fashion. The greater saphenous vein was harvested endoscopically from the right lower extremity from the mid calf to the groin. The vein was removed, distended, and found to be of fair quality, being thickened in areas. The subcutaneous tissue and skin edges were reapproximated running Vicryl sutures. Simultaneously, a standard median sternotomy incision was made and the sternum divided. The GILLIS was taken down from its bed and side branches divided between hemoclips. The sternum was the pericardium opened and reflected laterally. The patient was prepared for cannulation by placing pursestring sutures the distal ascending aorta, mid-ascending aorta, and right atrial appendage. The patient was heparinized and with used to is greater than 200 seconds, the distal ascending aorta was cannulated followed placement of a dual stage venous cannula through the right atrial appendage and into the inferior vena cava. A stab-in antegrade metabolic cannula was placed in the mid- ascending aorta. The patient was placed on on bypass temperature allowed to drift to 35.6 degrees centigrade. The distal targets were identified and the aorta was crossclamped. The patient received 700 mL of cold antegrade crystalloid cardioplegia through the aortic root and the patient's heart obtained rapid diastolic arrest. The PDA was opened the [place] blade and the vein was anastomosed in an end-to-side fashion using running 7-0 Prolene suture. The anastomosis found to be hemostatic and the patient received a notice of cold antegrade crystalloid cardioplegia through the aortic root. The OM2 branch was opened be blade and the vein was anastomosed in an end-to-side fashion using running 7-0 Prolene suture. The anastomosis found to be hemostatic. The OM 1 branch was opened be blade and the vein was opened along stroke fashion so the [id number] anastomosis could be completed using running 7-0 Prolene suture. The anastomosis was found to be hemostatic and the patient received a final dose of cold antegrade crystalloid cardioplegia through the aortic root. The D1 branch was opened with a [place] blade and the vein was anastomosed in an end-to-side fashion using running 7-0 Prolene suture. The anastomosis found to be hemost atic. The LAD was found to be intramyocardial throughout most of its course as indicated by the cardiac catheterization film. The vessel could not be identified and the midportion and became epicardial in the distal one third of the arterial course. The LAD was opened in this region and measured approximately 1 mm in diameter. The GILLIS was anastomosed in end-to-side fashion to the LAD using running 7-0 Prolene suture. The anastomosis found be hemostatic. Release of the bulldog clamp revealed good blushing of the surrounding epicardial tissue. The mammary pedicle was tacked to the epicardium using interrupted 5-0 silk suture. Rewarming was begun during this anastomosis. The aortic cross-clamp was released and the heart distended. The veins were measured and cut appropriate lengths. A partial occluding clamps placed across the mid ascending aorta and the antegrade cardioplegia cannula was removed. An additional aortotomy site was made with an 11 blade and both sites were enlarged with 4 mm punch. The sequential saphenous vein graft to the OM branches and the vein graft to the PDA were anastomosed in an end-to-side fashion to the aorta using a running 5-0 Prolene suture. The vein graft to the D1 branch did not have sufficient length to be of anastomosed to the aorta primarily and was anastomosed in an end-to-side fashion to the sequential saphenous vein graft to the OM branches using a running 7-0 Prolene suture. The vein grafts were occluded with bulldog clamps and de-aired the 25-gauge needle prior to removing the partial occluding clamp. The proximal and distal anastomoses were found to be hemostatic and the proximal anastomoses were marked using radiopaque loops. Two right ventricular temporary epicardial pacing lesion placed, and 3 chest suture placed, 2 in the mediastinum once the left pleural space. During rewarming the patient's heart regained normal sinus rhythm spontaneously. The patient's systemic temperature reached 36 degrees centigrade, he was ventilated and received volume. He was weaned from bypass required no inotropic support. Protamine was administered and the aortic and venous cannulae were removed. The aortic cannulation site was reinforced with a pledgeted 4 Prolene suture and the venous cannulation site was reinforced with a running 4-0 Prolene suture. The pericardium was loosely approximated in the midline using interrupted 0 silk suture. The sternum was reapproximated sternal wires, and the pectoralis major fascia, rectus abdominis fascia, subcutaneous tissue, and skin edges were reapproximated running Vicryl sutures. Sterile dressings were applied. The patient was transferred to the ICU in satisfactory postoperative condition. There were no intraoperative complications, and the instrument, needle, and sponge count were correct at end of operation. - Open Heart Detail SARAH (Internal Mammary Artery) Usage: Yes Cardiopulmonary Bypass Time (mins): 109 Aortic Cross Clamp Time (mins): 67 Intentional Hypothermia Temperature (C.): 35.6
[2019-04-26] MEDS: Nitroglycerin 25 MG/250 ML INFUS..BTL IVC SCH ×2 (12:15→19:19)
[2019-04-26] MEDS ORDERED: *HR* Dextrose 50 % in Water (Syg) 50 ML SYRINGE IVP PRN (12:23)
[2019-04-26] MEDS ORDERED: Potassium Chloride 40 MEQ/200 ML BAG IVPB PRN (12:23)
[2019-04-26] MEDS ORDERED: Insulin Regular, Human 100 UNIT/ML IV PRN (12:23)
[2019-04-26] MEDS ORDERED: Acetaminophen 325 MG TABLET PO PRN (12:25)
[2019-04-26] MEDS ORDERED: Ondansetron 4 MG/2 ML VIAL IVP PRN (12:25)
[2019-04-26] MEDS ORDERED: Acetaminophen 650 MG RECTAL SUPP RC PRN (12:25)
[2019-04-26] MEDS ORDERED: Calcium Gluconate 1gm/50mL 1 GM/50 ML BAG IVPB PRN (12:25)
[2019-04-26] MEDS ORDERED: Insulin Human Regular 100 UNIT in 0.9 % Sodium Chloride 100 ML IVC SCH (12:30)
[2019-04-26] MEDS ORDERED: 0.9 % Sodium Chloride w KCl 20 MEQ/1,000 ML MLS IVC SCH (12:30)
[2019-04-26] MEDS ORDERED: Norepinephrine 4 MG in D5% in Water 250 ML IVC SCH (12:30)
[2019-04-26 12:32] LABS: ABG Base Excess 1 mEq/L (-2 to 3); ABG HCO3 26 mEq/L (21-27); ABG Oxygen Saturation 98 % (95-98); ABG PCO2 40 mmHg (35-45); ABG PH 7.42 pH Units (7.32-7.45); ABG PO2 102 mmHg (85-104); ABG TCO2 27 mEq/L (20-26); Blood Gas PEEP 5 cm H2O; Blood Gas VT 600 cc
[2019-04-26 12:40] LABS: Basophils % 0.3 %; Eosinophils # 0.1 K/mcL (0.0-0.6); Eosinophils % 1.1 %; Hematocrit 35.3 % (37.5-50.1); Immature Granulocytes % 1.1 % (0-4); Lymphocytes # 1.4 K/mcL (0.6-4.6); Lymphocytes % 11.9 %; Mean Corpuscular HGB Conc 33.4 g/dL (31.6-35.5); Mean Corpuscular Hemoglobin 29.4 pg (28.0-33.3); Mean Corpuscular Volume 87.8 fL (83.0-100.0); Monocytes # 0.1 K/mcL (0.0-1.3); Monocytes % 0.8 %; Neutrophils # 10.1 K/mcL (1.6-8.9); Platelet Count 114 K/mcL (140-400); Red Blood Count 4.02 M/mcL (4.19-5.50); Red Cell Distribution Width 13.3 % (11.5-14.5); Segmented Neutrophils % 84.8 %
[2019-04-26 12:45] LABS: White Blood Count 11.9 K/mcL (4.3-11.1)
[2019-04-26 12:50] LABS: Hemoglobin 11.8 g/dL (12.9-16.9)
[2019-04-26 12:54] LABS: INR 1.5
[2019-04-26 12:55] LABS: BUN/Creatinine Ratio 16 (6-26); Blood Urea Nitrogen 16 mg/dL (8-23); Calcium 8.8 mg/dL (8.6-10.3); Carbon Dioxide 28 mEq/L (23-29); Chloride 101 mEq/L (98-107); Glucose 102 mg/dL (70-105); Magnesium 2.4 mg/dL (1.6-2.6); Osmolality,Calculated 285 (280-300); Potassium 3.2 mEq/L (3.5-5.1); Sodium 137 mEq/L (136-145); eGFR For African Americans > 60 (> 60); eGFR For Non-African Americans > 60 (> 60)
[2019-04-26 12:56] LABS: Prothrombin Time 17.4 Seconds (9.4-12.1)
[2019-04-26] MEDS ORDERED: Pantoprazole 40 MG VIAL IVP SCH (13:00)
[2019-04-26] MEDS: Isosorbide MONOnitrate (24 HR) 30 MG TAB.ER.24H PO SCH (13:20)
[2019-04-26] MEDS: hydroCHLOROthiazide 25 MG TABLET PO SCH (13:20)
[2019-04-26] MEDS: Gabapentin 300 MG CAPSULE PO SCH (13:21)
[2019-04-26] MEDS: Nicotine 14 MG PATCH.TD24 TD SCH (13:21)
[2019-04-26] MEDS ORDERED: 0.9 % Sodium Chloride 500 ML ONE ×2 (14:23→15:11)
--- NOTE | 2019-04-26 15:25 | Electrocardiograph Report ---
[address] [address] Test Date: 2019-04-25 Pat Name: Robert Bond Department: 113 Room: [facility] Gender: M Palliative Medicine Physician: : 1955 Requested By: Juan J Sutton Order Number: [id number] Reading MD: Sandoval Perez Measurements Intervals [place] Rate: 64 P: 50 NM: 173 QRS: -14 QRSD: 109 T: 31 QT: 401 QTc: 410 Interpretive Statements SINUS RHYTHM INCOMPLETE RIGHT BUNDLE BRANCH BLOCK Electronically Signed On 04-26-2019 15:23:21 EDT by Sandoval Perez
[2019-04-26 15:54] LABS: ABG Base Excess 1 mEq/L (-2 to 3); ABG HCO3 24 mEq/L (21-27); ABG Oxygen Saturation 98 % (95-98); ABG PCO2 35 mmHg (35-45); ABG PH 7.45 pH Units (7.32-7.45); ABG PO2 105 mmHg (85-104); ABG TCO2 25 mEq/L (20-26); Blood Gas Modality ASSIST CONTROL; Blood Gas PEEP 5 cm H2O; Blood Gas VT 700 cc
[2019-04-26] MEDS: *HR* FentaNYL (PF) 100 MCG/2 ML VIAL IVP PRN ×3 (16:46→21:09)
[2019-04-26] MEDS: Ketorolac 15 MG/ML VIAL IVP SCH ×2 (18:16→23:38)
[2019-04-26] MEDS: niCARdipine 20 MG/200 ML MLS IVC SCH ×3 (19:18→19:20)
[2019-04-26] MEDS: traMADol 50 MG TABLET PO SCH (19:18)
[2019-04-26 19:56] LABS: ABG Base Excess 0 mEq/L (-2 to 3); ABG HCO3 25 mEq/L (21-27); ABG Oxygen Saturation 99 % (95-98); ABG PCO2 38 mmHg (35-45); ABG PH 7.42 pH Units (7.32-7.45); ABG PO2 116 mmHg (85-104); ABG TCO2 26 mEq/L (20-26); Blood Gas PEEP 5 cm H2O; Blood Gas VT 700 cc
[2019-04-26 20:51] LABS: ABG Base Excess 0 mEq/L (-2 to 3); ABG HCO3 25 mEq/L (21-27); ABG Oxygen Saturation 97 % (95-98); ABG PCO2 46 mmHg (35-45); ABG PH 7.35 pH Units (7.32-7.45); ABG PO2 99 mmHg (85-104); ABG TCO2 27 mEq/L (20-26); Blood Gas PEEP 5 cm H2O; Blood Gas Pressure Support 5 cm H2O
[2019-04-26] MEDS ORDERED: Amiodarone Premix 360 MG/200 ML BAG IVC ONE ×2 (21:25→21:27)
[2019-04-26] MEDS ORDERED: Amiodarone Premix 150 MG/100 ML BAG IVPB ONE ×2 (21:25→21:27)
[2019-04-26] MEDS ORDERED: Amiodarone Premix 360 MG/200 ML BAG IVC SCH (21:30)
[2019-04-26 22:22] LABS: ABG Base Excess -3 mEq/L (-2 to 3); ABG HCO3 22 mEq/L (21-27); ABG Oxygen Saturation 97 % (95-98); ABG PCO2 36 mmHg (35-45); ABG PH 7.38 pH Units (7.32-7.45); ABG PO2 96 mmHg (85-104); ABG TCO2 23 mEq/L (20-26)
[2019-04-26] MEDS: *HR* OxyCODONE/APAP 5/325 TABLET PO PRN (22:36)
[2019-04-27] MEDS: *HR* FentaNYL (PF) 100 MCG/2 ML VIAL IVP PRN ×2 (00:27→04:32)
[2019-04-27] MEDS: niCARdipine 20 MG/200 ML MLS IVC SCH ×2 (01:05→01:06)
[2019-04-27] MEDS: *HR* OxyCODONE/APAP 5/325 TABLET PO PRN ×3 (02:52→20:28)
--- NOTE | 2019-04-27 03:33 | Electrocardiograph Report ---
[facility] Test Date: 2019-04-26 Pat Name: Robert Bond Department: 109 Room: [facility] Gender: M Director Software: KATHY : 1955 Requested By: Priscilla Walker Order Number: [id number] Reading MD: Slick Parekh Measurements Intervals [place] Rate: 67 P: 56 CT: 181 QRS: 2 QRSD: 116 T: -8 QT: 420 QTc: 436 Interpretive Statements SINUS RHYTHM Electronically Signed On 04-27-2019 3:32:19 EDT by Slick Parekh
[2019-04-27] MEDS: *HR* Heparin 5,000 UNIT/ML VIAL SQ SCH ×2 (03:48→16:18)
[2019-04-27 04:10] LABS: Basophils % 0.2 %; Hematocrit 35.6 % (37.5-50.1); Hemoglobin 11.6 g/dL (12.9-16.9); Immature Granulocytes % 0.3 % (0-4); Lymphocytes # 1.2 K/mcL (0.6-4.6); Lymphocytes % 9.4 %; Mean Corpuscular HGB Conc 32.6 g/dL (31.6-35.5); Mean Corpuscular Hemoglobin 29.1 pg (28.0-33.3); Mean Corpuscular Volume 89.4 fL (83.0-100.0); Mean Platelet Volume 10.7 fL (9.4-12.4); Monocytes # 0.8 K/mcL (0.0-1.3); Monocytes % 6.6 %; Neutrophils # 10.5 K/mcL (1.6-8.9); Platelet Count 137 K/mcL (140-400); Red Blood Count 3.98 M/mcL (4.19-5.50); Red Cell Distribution Width 13.9 % (11.5-14.5); Segmented Neutrophils % 83.5 %; White Blood Count 12.6 K/mcL (4.3-11.1)
[2019-04-27 04:18] LABS: INR 1.3; Prothrombin Time 14.3 Seconds (9.4-12.1)
[2019-04-27 04:21] LABS: Activated Partial Thrombo Time 28.2 Seconds (26.0-36.0)
[2019-04-27 04:29] LABS: BUN/Creatinine Ratio 17 (6-26); Blood Urea Nitrogen 22 mg/dL (8-23); Calcium 8.4 mg/dL (8.6-10.3); Carbon Dioxide 25 mEq/L (23-29); Chloride 104 mEq/L (98-107); Glucose 130 mg/dL (70-105); Magnesium 2.1 mg/dL (1.6-2.6); Osmolality,Calculated 285 (280-300); Potassium 4.5 mEq/L (3.5-5.1); Sodium 135 mEq/L (136-145); eGFR For African Americans > 60 (> 60); eGFR For Non-African Americans 57 (> 60)
[2019-04-27] MEDS: Nitroglycerin 25 MG/250 ML INFUS..BTL IVC SCH (05:30)
[2019-04-27] MEDS: Ketorolac 15 MG/ML VIAL IVP SCH ×4 (05:38→23:13)
--- NOTE | 2019-04-27 07:43 | Cardiothoracic Progress Note ---
Date of Encounter: 04/27/19 Time of Encounter: 07:41 - Assessment and plan (1) Coronary artery disease Current Visit: Yes Status: Acute The patient is recovering well from his CABG5. He is extubated and breathing comfortably. He was able to sit in a chair last night without difficulty. The arterial line, [place] catheter, and [place] catheter be removed. The patient will be transferred to the stepdown unit when a bed is available. The assessment and plan as outlined above was discussed with the patient and/or family members who expressed understanding and agreement. All questions were answered. Qualifiers: Coronary Disease-Associated Artery/Lesion type: [place] artery [place] vs. transplanted heart: [place] heart Associated angina: angina presence unspeci fied Qualified Code(s): I25.10 - Atherosclerotic heart disease of [place] coronary artery without angina pectoris - Subjective Procedure(s) Performed: POD#1 S/P CABG5 Interval history: The patient remained hemodynamically stable overnight. He is extubated and breathing comfortably. He was able to sit in a chair last night without difficulty. Vital Signs, Last 4 Hours Temp Pulse Resp BP Pulse Ox 04/27/19 07:29 14 98 04/27/19 07:00 65 14 100/67 98 04/27/19 06:00 63 16 102/66 97 04/27/19 05:00 65 14 104/71 97 04/27/19 04:00 98.8 F 67 14 109/79 99 Oxgyen Flow Rate Oxygen Flow Rate (LPM) 2 Clinical Data, last 8 Hours Output, Chest Tube Drainage 0 Amount [Mediastinal #1] Output, Chest Tube Drainage 0 Amount [Mediastinal #1] Output, Chest Tube Drainage 0 Amount [Mediastinal #1] Output, Chest Tube Drainage 0 Amount [Mediastinal #1] Output, Chest Tube Drainage 1 Amount [Mediastinal #1] Output, Chest Tube Drainage 0 Amount [Mediastinal #1] Output, Chest Tube Drainage 2 Amount [Mediastinal #1] Output, Chest Tube Drainage 9 Amount [Mediastinal #1] Output, Chest Tube Drainage 10 Amount [Mediastinal #2] Output, Chest Tube Drainage 10 Amount [Mediastinal #2] Output, Chest Tube Drainage 10 Amount [Mediastinal #2] Output, Chest Tube Drainage 5 Amount [Mediastinal #2] Output, Chest Tube Drainage 11 Amount [Mediastinal #2] Output, Chest Tube Drainage 4 Amount [Mediastinal #2] Output, Chest Tube Drainage 0 Amount [Mediastinal #2] Output, Chest Tube Drainage 21 Amount [Mediastinal #2] Weight 04/25/19 04/26/19 04/27/19 23:59 23:59 23:59 Weight 87.6 kg 88.4 kg - Physical Examination General: Conversant, No Apparent Distress Neck: No JVD, Normal carotid pulses Cardiac: Reg Rate and Rhythm, Normal S1 and S2, No Murmur Incision: No signs of infection, Dry/intact dressing Sternum: Stable Chest tubes: Minimal drainage, Other (No air leak) Pacing Wires: In place Lungs: Normal Breath Sounds, No Wheeze, Rales, Rhonchi Neuro: Alert and responsive, No focal deficits noted Vascular: Normal capillary refill Extremities: No Clubbing, No Cyanosis, No Edema - Labs 04/27/19 03:55 04/27/19 03:55 Lab Results, Last 24 hours 04/26/19 04/26/19 04/26/19 18:03 Unknown Unknown WBC 11.9 H D Hgb 11.8 L D Hct 35.3 L Plt Count 114 L D INR 1.5 APTT 35.0 Sodium Potassium 4.1 D Chloride Carbon Dioxide BUN Creatinine Glucose Calcium Magnesium 04/26/19 04/27/19 04/27/19 Unknown 03:55 03:55 WBC 12.6 H Hgb 11.6 L Hct 35.6 L Plt Count 137 L INR 1.3 APTT 28.2 Sodium 137 Potassium 3.2 L Chloride 101 Carbon Dioxide 28 BUN 16 Creatinine 1.02 Glucose 102 Calcium 8.8 Magnesium 2.4 04/27/19 03:55 WBC Hgb Hct Plt Count INR APTT Sodium 135 L Potassium 4.5 Chloride 104 Carbon Dioxide 25 BUN 22 Creatinine 1.28 Glucose 130 H Calcium 8.4 L Magnesium 2.1 - Imaging Chest Xray: image reviewed (No pneumothorax. Minimal atelectasis/infiltrates.) - VTE Documentation of Mechanical Device: Graduated compression elastic hosiery Consult Discharge Plan - Plan Referrals: Valerie Arriaga CNP [Primary Care Provider] - 04/23/19 9:30 am
[2019-04-27] MEDS ORDERED: Ondansetron 4 MG/2 ML VIAL IVP PRN (07:55)
[2019-04-27] MEDS ORDERED: Dextrose Gel 15 GM/37.5 ML TUBE PO PRN ×2 (07:55)
[2019-04-27] MEDS ORDERED: Naloxone 0.4 MG/ML INJ IVP PRN (07:55)
[2019-04-27] MEDS ORDERED: D5% in Water 1,000 ML IVC PRN (07:55)
[2019-04-27] MEDS ORDERED: *HR* FentaNYL (PF) 100 MCG/2 ML VIAL IVP PRN (07:55)
[2019-04-27] MEDS ORDERED: Insulin Regular, Human 100 UNIT/ML IV PRN (07:55)
[2019-04-27] MEDS ORDERED: Insulin Human Regular 100 UNIT in 0.9 % Sodium Chloride 100 ML IVC SCH (07:55)
[2019-04-27] MEDS ORDERED: Acetaminophen 325 MG TABLET PO PRN (07:55)
[2019-04-27] MEDS ORDERED: Nitroglycerin 0.4 MG TAB.SUBL SL PRN (07:55)
[2019-04-27] MEDS ORDERED: *HR* Dextrose 50 % in Water (Syg) 50 ML SYRINGE IVP PRN (07:55)
[2019-04-27] MEDS ORDERED: Furosemide 20 MG/2 ML VIAL IVP SCH (08:00)
[2019-04-27] MEDS: Pantoprazole 40 MG VIAL IVP SCH (08:57)
[2019-04-27] MEDS: Chlorhexidine Rinse 15 ML MOUTHWASH MM SCH ×2 (08:57→20:28)
[2019-04-27] MEDS: Furosemide 20 MG/2 ML VIAL IVP SCH ×2 (08:57→16:15)
[2019-04-27] MEDS: Aspirin Enteric Coated 81 MG Tablet PO SCH (08:58)
[2019-04-27] MEDS: Nicotine 14 MG PATCH.TD24 TD SCH (08:59)
[2019-04-27] MEDS ORDERED: Gabapentin 300 MG CAPSULE PO SCH ×2 (09:00)
--- NOTE | 2019-04-27 09:14 | Internal Med Progress Note ---
Hospitalist Progress Note - Encounter Date of Encounter: 04/27/19 Time of Encounter: 08:00 - Subjective Interval History: Patient was seen and examined at bedside. Status post extubation. Denies any shortness of breath, cough or wheezing. Pain is controlled with the pain medications provided by the cardiothoracic surgery team. Denies any fever, chills, chest pain or palpitations. Has had no nausea or vomiting. No overnight events as per nursing staff. Discussed case with Dr. Walker reports that the patient did well with the procedure and is doing fine will be transferred to [facility] today. - Exam Vitals: Temp Pulse Resp BP Pulse Ox 98.1 F 70 14 102/69 97 04/27/19 07:46 04/27/19 07:46 04/27/19 07:46 04/27/19 07:46 04/27/19 07:46 Exam: General: Patient is alert, oriented, no acute distress, speaks in full sentences. Head: atraumatic, normocephalic, Eye: normal appearance, PERRL, no scleral icterus, no conjunctival injection ENT: mucous membranes moist, normal external ear exam Neck: normal inspection, trachea midline, full ROM, no carotid bruits Chest: normal inspection, symmetric chest rise Respiratory: Good respiratory effort. Decreased breath sounds bilaterally without wheezing, 2 chest tubes. Cardiovascular: Midline incision is clean, dry and intact, no signs of bleeding. Regular rate and rhythm. s1 and s2 No clicks, rubs, gallops, or murmors. Abdomen: Bowel sounds present normoactive x-4 quadrants. Abdomen is soft, nondistended. no Epigastric tenderness. No guarding or rebound. No organomegaly noted, musculoskeletal: Spontaneously moving all extremities. no edema, no calf tenderness Skin: warm, dry, intact. Neuro: Alert and oriented x4. No focal deficit Psych: Patient's affect is normal - Assessment and Plan (1) S/P CABG x 5 Current Visit: Yes Status: Acute Assessment and Plan: presented with chest pain. 04/20/2019 [facility] showed multivessel disease. TTE with preserved EF. Status post CABG on 04/26 Management as per cardiothoracic surgery. Continue with aspirin, beta blockers and statins Pain control as per cardiothoracic surgery. (2) Coronary artery disease Current Visit: Yes Status: Acute Assessment and Plan: Management as per cardiothoracic surgery. Continue aspirin, beta shagufta, statin (3) COPD (chronic obstructive pulmonary disease) Current Visit: No Status: Chronic Assessment and Plan: History of COPD. No evidence of acute exacerbation. Patient continues to smoke half pack a day. Discussed smoking cessation. -Duo nebs as needed -Nicotine patch - Xopenex as needed for shortness of breath. (4) DVT prophylaxis Current Visit: Yes Status: Acute Assessment and Plan: Heparin - Time Spent with Patient Total time spent is greater than 50% in coordination of care (as documented) at patient's floor/unit and/or counseling patient: Internal Medicine: Result - Labs CBC & Chem 7: 04/27/19 03:55 04/27/19 03:55 Labs: Short CBC 04/26/19 04/27/19 Range/Units Unknown 03:55 WBC 11.9 H D 12.6 H (4.3-11.1) K/mcL Hgb 11.8 L D 11.6 L (12.9-16.9) g/dL Hct 35.3 L 35.6 L (37.5-50.1) % Plt Count 114 L D 137 L (140-400) K/mcL Neutrophils # 10.1 H 10.5 H (1.6-8.9) K/mcL BMP 04/26/19 04/26/19 04/27/19 18:03 Unknown 03:55 Sodium 137 135 L Potassium 4.1 D 3.2 L 4.5 Chloride 101 104 Carbon Dioxide 28 25 BUN 16 22 Creatinine 1.02 1.28 Glucose 102 130 H Calcium 8.8 8.4 L - ABG Interpretation ABG results: ABG ABG pH 7.38 pH Units (7.32-7.45) 04/26/19 22:16 ABG pCO2 36 mmHg (35-45) 04/26/19 22:16 ABG pO2 96 mmHg (85-104) 04/26/19 22:16 ABG O2 Saturation 97 % (95-98) 04/26/19 22:16 PT/INR, D-dimer PT 14.3 Seconds (9.4-12.1) H 04/27/19 03:55 - Impressions Impressions Chest X-Ray 04/26/19 12:23 IMPRESSION: 1. Support lines and tubes as above. No pneumothorax. 2. Left basilar atelectasis. D/ / Tay Vallejo MD / Tay Vallejo MD Interpreting Provider: Tay Vallejo MD X-Ray 04/26/19 12:23 IMPRESSION: Tip of the nasogastric tube projects over the proximal stomach, with the side port projecting over gastroesophageal junction. Consider advancement by approximately 5 cm, and repeat abdominal radiograph. D/ / 04/26/2019 14:33:27 Guanaco Bello MD / feliz Interpreting Provider: Guanaco Bello MD Chest X-Ray 04/27/19 04:00 IMPRESSION: Interval extubation and removal of the nasogastric tube. Slightly increased left basilar pulmonary opacity may represent worsening atelectasis. Continued attention on follow-up is recommended. Support hardware, as detailed above. D/ : / 04/27/2019 08:07:56 Guanaco Bello MD / nani Interpreting Provider: Guanaco Bello MD - VTE Documentation of Mechanical Device: Graduated compression elastic hosiery Consult Discharge Plan - Plan Referrals: Valerie Arriaga CNP [Primary Care Provider] - 04/23/19 9:30 am (2) Coronary artery disease Qualifiers: Coronary Disease-Associated Artery/Lesion type: [place] artery [place] vs. transplanted heart: [place] heart Associated angina: angina presence unspecified Qualified Code(s): I25.10 - Atherosclerotic heart disease of [place] coronary artery without angina pectoris (3) COPD (chronic obstructive pulmonary disease) Qualifiers: COPD type: unspecified COPD Qualified Code(s): J44.9 - Chronic obstructive pulmonary disease, unspecified
[2019-04-27] MEDS: Insulin LISPRO 300 UNITS/3 ML VIAL SQ SCH ×3 (12:35→20:28)
--- NOTE | 2019-04-27 12:37 | Anesthesia Evaluation Post Op ---
Date of Encounter: 04/27/19 Time of Encounter: 10:00 - Vital Signs Vital Signs: Selected Entries 04/27/19 07:46 04/27/19 10:00 Temperature 98.1 F Pulse Rate 68 Respiratory Rate 14 Blood Pressure 100/66 O2 Sat by Pulse Oximetry 97 Oxygen Flow Rate (LPM) 2 - Lungs Lungs: Clear Ascult./Percussion - Airway Airway: Non-obstructed - Cardiovascular Regular Rate - Mental Status Mental Status: Alert & Oriented, Answers Appropriately - Pain Pain Scale: 2 Pain Scale used: Numeric (1 - 10) - Nausea Vomiting Nausea Vomiting: Not Present - Hydration Hydration: Tolerates oral liquids, [place] catheter - Discharge PostOp Status: Transfer Patient to floor
[2019-04-27] MEDS: Amiodarone Premix 360 MG/200 ML BAG IVC SCH (16:15)
[2019-04-28] MEDS: *HR* OxyCODONE/APAP 5/325 TABLET PO PRN ×3 (00:28→08:12)
[2019-04-28 03:47] LABS: Basophils % 0.2 %; Eosinophils # 0.2 K/mcL (0.0-0.6); Eosinophils % 1.1 %; Hematocrit 33.9 % (37.5-50.1); Hemoglobin 11.1 g/dL (12.9-16.9); Immature Granulocytes % 0.5 % (0-4); Lymphocytes # 1.6 K/mcL (0.6-4.6); Lymphocytes % 11.4 %; Mean Corpuscular HGB Conc 32.7 g/dL (31.6-35.5); Mean Corpuscular Hemoglobin 29.7 pg (28.0-33.3); Mean Corpuscular Volume 90.6 fL (83.0-100.0); Mean Platelet Volume 11.1 fL (9.4-12.4); Monocytes # 1.2 K/mcL (0.0-1.3); Monocytes % 8.6 %; Neutrophils # 10.9 K/mcL (1.6-8.9); Nucleated Red Blood Cells 0.6 /100 WBC (0); Platelet Count 144 K/mcL (140-400); Red Blood Count 3.74 M/mcL (4.19-5.50); Red Cell Distribution Width 14.2 % (11.5-14.5); Segmented Neutrophils % 78.2 %; White Blood Count 13.9 K/mcL (4.3-11.1)
[2019-04-28 03:57] LABS: BUN/Creatinine Ratio 23 (6-26); Blood Urea Nitrogen 24 mg/dL (8-23); Calcium 7.9 mg/dL (8.6-10.3); Carbon Dioxide 30 mEq/L (23-29); Chloride 101 mEq/L (98-107); Glucose 143 mg/dL (70-105); Osmolality,Calculated 287 (280-300); Potassium 3.6 mEq/L (3.5-5.1); Sodium 135 mEq/L (136-145); eGFR For African Americans > 60 (> 60); eGFR For Non-African Americans > 60 (> 60)
[2019-04-28] MEDS: Amiodarone Premix 360 MG/200 ML BAG IVC SCH (04:28)
[2019-04-28] MEDS: *HR* Heparin 5,000 UNIT/ML VIAL SQ SCH ×2 (06:07→16:54)
[2019-04-28] MEDS: Ketorolac 15 MG/ML VIAL IVP SCH ×3 (06:07→17:01)
--- NOTE | 2019-04-28 07:42 | Cardiothoracic Progress Note ---
Date of Encounter: 04/28/19 Time of Encounter: 07:40 - Assessment and plan (1) Coronary artery disease Current Visit: Yes Status: Acute The patient is recovering well from his CABG5. He is breathing comfortably. He was able to sit in a chair last night without difficulty. The chest tubes were removed. The amiodarone drip will be stopped and the patient was started on oral amiodarone. The patient will be transferred to the stepdown unit when a bed is available. The assessment and plan as outlined above was discussed with the patient and/or family members who expressed understanding and agreement. All questions were answered. Qualifiers: Coronary Disease-Associated Artery/Lesion type: [place] artery [place] vs. transplanted heart: [place] heart Associated angina: angina presence unspecified Qualified Code(s): I25.10 - Atherosclerotic heart disease of [place] coronary artery without angina pectoris - Subjective Procedure(s) Performed: POD#2 S/P CABG5 Interval history: The patient remained hemodynamically stable overnight. He is breathing comfortably. He was able to sit in a chair last night without difficulty. Vital Signs, Last 4 Hours Temp Pulse Resp BP Pulse Ox 04/28/19 06:00 82 20 91/68 96 04/28/19 04:00 98 F 82 20 109/65 95 Oxgyen Flow Rate Oxygen Flow Rate (LPM) 2 Clinical Data, last 8 Hours Output, Chest Tube Drainage 2 Amount [Mediastinal #1] Output, Chest Tube Drainage 36 Amount [Mediastinal #1] Output, Chest Tube Drainage 4 Amount [Mediastinal #2] Output, Chest Tube Drainage 10 Amount [Mediastinal #2] Output, Urine Amount 200 Weight 04/26/19 04/27/19 04/28/19 23:59 23:59 23:59 Weight 88.4 kg - Physical Examination General: Conversant, No Apparent Distress Neck: No JVD, Normal carotid pulses Cardiac: Reg Rate and Rhythm, Normal S1 and S2, No Murmur Incision: No signs of infection, Dry/intact dressing Sternum: Stable Chest tubes: Minimal drainage, Other Pacing Wires: In place (No air leak) Lungs: Normal Breath Sounds, No Wheeze, Rales, Rhonchi Neuro: Alert and responsive, No focal deficits noted Vascular: Normal capillary refill Musculoskeletal: No Chest Wall Tenderness Extremities: No Clubbing, No Cyanosis, No Edema - Labs 04/28/19 03:20 04/28/19 03:20 Lab Results, Last 24 hours 04/28/19 04/28/19 03:20 03:20 WBC 13.9 H Hgb 11.1 L Hct 33.9 L Plt Count 144 Sodium 135 L Potassium 3.6 Chloride 101 Carbon Dioxide 30 H BUN 24 H Creatinine 1.03 Glucose 143 H Calcium 7.9 L - VTE Documentation of Mechanical Device: Graduated compression elastic hosiery Consult Discharge Plan - Plan Referrals: Valerie Arriaga CNP [Primary Care Provider] - 04/23/19 9:30 am
--- NOTE | 2019-04-28 08:03 | Event Note ---
Date of Encounter: 04/28/19 Time of Encounter: 08:[address] Walker. who will take over for patient as primary. COPD is stable. will sign off.
[2019-04-28] MEDS: Furosemide 20 MG/2 ML VIAL IVP SCH ×2 (08:10→18:29)
[2019-04-28] MEDS: Nicotine 14 MG PATCH.TD24 TD SCH (08:10)
[2019-04-28] MEDS: Insulin LISPRO 300 UNITS/3 ML VIAL SQ SCH ×4 (08:10→21:12)
[2019-04-28] MEDS: Chlorhexidine Rinse 15 ML MOUTHWASH MM SCH ×2 (08:11→19:40)
[2019-04-28] MEDS: Pantoprazole 40 MG VIAL IVP SCH (08:11)
[2019-04-28] MEDS: *HR* Amiodarone 200 MG TABLET PO SCH (08:11)
[2019-04-28] MEDS: Aspirin Enteric Coated 81 MG Tablet PO SCH (08:11)
[2019-04-28] MEDS: Gabapentin 300 MG CAPSULE PO SCH (19:39)
[2019-04-29] MEDS: Ketorolac 15 MG/ML VIAL IVP SCH ×5 (00:06→23:40)
[2019-04-29] MEDS: *HR* Heparin 5,000 UNIT/ML VIAL SQ SCH ×2 (06:36→18:09)
[2019-04-29] MEDS: Insulin LISPRO 300 UNITS/3 ML VIAL SQ SCH ×4 (08:25→23:51)
[2019-04-29] MEDS: Chlorhexidine Rinse 15 ML MOUTHWASH MM SCH ×2 (08:33→20:15)
[2019-04-29] MEDS: Furosemide 20 MG/2 ML VIAL IVP SCH ×2 (08:33→18:09)
[2019-04-29] MEDS: Pantoprazole 40 MG VIAL IVP SCH (08:33)
[2019-04-29] MEDS: Aspirin Enteric Coated 81 MG Tablet PO SCH (08:33)
[2019-04-29] MEDS: *HR* Amiodarone 200 MG TABLET PO SCH (08:33)
[2019-04-29] MEDS: Nicotine 14 MG PATCH.TD24 TD SCH (08:34)
--- NOTE | 2019-04-29 08:55 | Cardiothoracic Progress Note ---
Date of Encounter: 04/29/19 Time of Encounter: 08:26 - Assessment and plan (1) Coronary artery disease Current Visit: Yes Status: Acute The patient is recovering well from his CABG5. He is breathing comfortably. He began ambulating in the hallways last night without difficulty. The assessment and plan as outlined above was discussed with the patient and/or family members who expressed understanding and agreement. All questions were answered. Qualifiers: Coronary Disease-Associated Artery/Lesion type: [place] artery [place] vs. transplanted heart: [place] heart Associated angina: angina presence unspecified Qualified Code(s): I25.10 - Atherosclerotic heart disease of [place] coronary artery without angina pectoris - Subjective Procedure(s) Performed: POD#3 S/P CABG5 Interval history: The patient remained hemodynamically stable overnight. He is breathing comfort ably. He began ambulating in the hallways last night without difficulty. Vital Signs, Last 4 Hours Temp Pulse Resp BP Pulse Ox 04/29/19 07:30 14 93 04/29/19 07:27 98.4 F 89 18 105/69 92 Oxgyen Flow Rate Oxygen Flow Rate (LPM) 0 Clinical Data, last 8 Hours Output, Urine Amount 0 Weight 04/27/19 04/28/19 04/29/19 23:59 23:59 23:59 Weight 88.4 kg 89.4 kg - Physical Examination General: Conversant, No Apparent Distress Neck: No JVD, Normal carotid pulses Cardiac: Reg Rate and Rhythm, Normal S1 and S2, No Murmur Incision: No signs of infection, Dry/intact dressing Sternum: Stable Pacing Wires: In place Lungs: Normal Breath Sounds, No Wheeze, Rales, Rhonchi Neuro: Alert and responsive, No focal deficits noted Vascular: Normal capillary refill Skin: No rashes noted on visualized skin Extremities: No Clubbing, No Cyanosis, No Edema - Labs 04/28/19 03:20 04/28/19 03:20 - VTE Documentation of Mechanical Device: Graduated compression elastic hosiery Consult Discharge Plan - Plan Referrals: Valerie Arriaga CNP [Primary Care Provider] - 04/23/19 9:30 am
[2019-04-29] MEDS: Gabapentin 300 MG CAPSULE PO SCH (20:15)
[2019-04-30] MEDS: *HR* Heparin 5,000 UNIT/ML VIAL SQ SCH (06:42)
[2019-04-30] MEDS: Ketorolac 15 MG/ML VIAL IVP SCH ×2 (06:42→11:18)
[2019-04-30] MEDS: Nicotine 14 MG PATCH.TD24 TD SCH (08:02)
[2019-04-30] MEDS: Aspirin Enteric Coated 81 MG Tablet PO SCH (08:02)
[2019-04-30] MEDS: Chlorhexidine Rinse 15 ML MOUTHWASH MM SCH (08:02)
[2019-04-30] MEDS: *HR* OxyCODONE/APAP 5/325 TABLET PO PRN ×4 (08:02→16:36)
[2019-04-30] MEDS: *HR* Amiodarone 200 MG TABLET PO SCH (08:02)
[2019-04-30] MEDS: Insulin LISPRO 300 UNITS/3 ML VIAL SQ SCH ×3 (08:03→16:39)
[2019-04-30] MEDS: Pantoprazole 40 MG VIAL IVP SCH (08:03)
--- NOTE | 2019-04-30 08:05 | Cardiothoracic Progress Note ---
Date of Encounter: 04/30/19 Time of Encounter: 08:02 - Assessment and plan (1) Coronary artery disease Current Visit: Yes Status: Acute The assessment and plan as outlined above was discussed with the patient and/or family members who expressed understanding and agreement. All questions were answered. The patient will ambulate this morning and if it goes well he may agreed to be discharged this afternoon. Otherwise, we will discharge him tomorrow. He plans to stay locally and live with his brother in town. Qualifiers: Coronary Disease-Associated Artery/Lesion type: [place] artery [place] vs. transplanted heart: [place] heart Associated angina: angina presence unspe cified Qualified Code(s): I25.10 - Atherosclerotic heart disease of [place] coronary artery without angina pectoris - Subjective Interval history: The patient has been ambulating and has no complaints. Vital Signs, Last 4 Hours Temp Pulse Resp BP Pulse Ox 04/30/19 07:43 98.9 F 95 18 137/114 94 04/30/19 07:23 16 91 Oxgyen Flow Rate Oxygen Flow Rate (LPM) 0 Clinical Data, last 8 Hours Output, Urine Amount 350 Weight 04/28/19 04/29/19 04/30/19 23:59 23:59 23:59 Weight 89.4 kg 87.3 kg Lungs are clear to percussion and auscultation. Heart is in a normal sinus rhythm. All incisions are healing well without signs of infection and the sternum is stable. The pacing wires were removed. - Labs 04/28/19 03:20 04/28/19 03:20 - VTE Documentation of Mechanical Device: Graduated compression elastic hosiery Consult Discharge Plan - Plan Referrals: Valerie Arriaga CNP [Primary Care Provider] - 04/23/19 9:30 am
[2019-04-30 11:32] VITALS: BP 126/88
--- NOTE | 2019-04-30 14:01 | Discharge Summary ---
Date of Encounter: 04/30/19 Time of Encounter: 13:50 - Discharge Diagnosis (1) Coronary artery disease Priority: Primary Status: Acute Qualifiers: Coronary Disease-Associated Artery/Lesion type: [place] artery [place] vs. transplanted heart: [place] heart Associated angina: angina presence unspecified Qualified Code(s): I25.10 - Atherosclerotic heart disease of [place] coronary artery without angina pectoris - Hospital Course Hospital course: Mr. Bond is a 63 year old male The patient is a 6 he 3-year-old gentleman with a history of hypertension, hypercholesterolemia, COPD and known coronary artery disease who presented with angina and slightly elevated troponin. Cardiac catheterization revealed triple- vessel disease and he was referred for surgery. He had been on Plavix and this was stopped. On 04/26/2019, Dr. Walker took the patient to the operating room for coronary artery bypass grafting 5, utilizing the left internal mammary artery. The patient tolerated this procedure well. On April 27, transfer orders were written to the floor. On April 28, chest tubes were removed. On April 30, the pacing wires were removed. The patient otherwise did well and was discharged on April 30. At that time, he was afebrile. Lungs were clear to percussion and auscultation. Heart was in a normal sinus rhythm. All incisions were healing well without signs of infection and the sternum was stable. Discharge medications are on the med rec and include narcotics for pain. I did check the [place] automated Rx reporting system. The patient was postoperative and was given a 7 day supply. Appropriate precautions were given. The patient was to return to his previous and regular diet. He was to avoid heavy lifting for a total of 3 months after surgery, but to walk as much as possible. He was to avoid driving for 1 month. He was to follow up and see Dr. Walker in the office in 4 weeks as directed. He was to follow-up with his primary care doctor and business dean as directed. He was to call sooner for any difficulties. - Time Spent with Patient Total time spent providing and/or coordinating discharge services: - Discharge Medications Prescriptions: New Amiodarone [Cordarone] 200 mg PO DAILY #30 tablet Atorvastatin [Lipitor] 40 mg PO HS #30 tablet Nicotine Patch [Nicoderm] 14 mg TD DAILY #14 patch.td24 OxyCODONE/APAP 5/325 [Percocet 5/325 MG] 1 each PO Q4HR PRN 7 Days #20 tablet MDD 4 PRN Reason: Severe Pain Continued Aspirin [Lo-Dose Aspirin EC] 81 mg PO DAILY Metoprolol Succinate 100 mg PO DAILY hydroCHLOROthiazide [Hydrochlorothiazide] 25 mg PO DAILY Gabapentin [Neurontin] 300 mg PO DAILY Tramadol HCl [Ultram] 50 mg PO HS Albuterol Sulfate [Ventolin Hfa] 2 puff IH Q6H PRN PRN Reason: Shortness Of Breath Losartan Potassium [Cozaar] 100 mg PO DAILY Clopidogrel [Plavix] 75 mg PO DAILY Nitroglycerin [Nitrostat] 0.4 mg SL PRN PRN #1 vial PRN Reason: Chest Pain Home Medications: Clopidogrel [Plavix] 75 mg PO DAILY 01/11/16 [History] Losartan Potassium [Cozaar] 100 mg PO DAILY 01/11/16 [History] Nitroglycerin [Nitrostat] 0.4 mg SL PRN PRN #1 vial 01/12/16 [Rx] Albuterol Sulfate [Ventolin Hfa] 2 puff IH Q6H PRN 04/20/19 [History] Aspirin [Lo-Dose Aspirin EC] 81 mg PO DAILY 04/20/19 [History] Gabapentin [Neurontin] 300 mg PO DAILY 04/20/19 [History] Metoprolol Succinate 100 mg PO DAILY 04/20/19 [History] Tramadol HCl [Ultram] 50 mg PO HS 04/20/19 [History] hydroCHLOROthiazide [Hydrochlorothiazide] 25 mg PO DAILY 04/20/19 [History] Amiodarone [Cordarone] 200 mg PO DAILY #30 tablet 04/30/19 [Rx] Atorvastatin [Lipitor] 40 mg PO HS #30 tablet 04/30/19 [Rx] Nicotine Patch [Nicoderm] 14 mg TD DAILY #14 patch.td24 04/30/19 [Rx] OxyCODONE/APAP 5/325 [Percocet 5/325 MG] 1 each PO Q4HR PRN 7 Days #20 tablet MDD 4 04/30/19 [Rx] Allergies/Adverse Reactions: Allergy/AdvReac Type Severity Reaction Status Date / Time No Known Allergies Allergy Verified 04/20/19 01:01 Date of admission: 04/21/19 18:15 Primary care physician: Valerie Arriaga Consults: 04/20/19 05:36 Consult to Cardiology [CONS] Routine Comment: Consulting Provider: Cardiology Dolly Reason for Consult: Chest Pain with elevated troponin Call Completed: No 04/23/19 09:14 Consult to Cardiothoracic Surgery [CONS] Routine Consulting Provider: Cardiothoracic Surgery Dolly Reason for Consult: Eval for CABG Time Notified: 09:14 Call Completed: Yes 04/23/19 10:16 Consult to Cardiac Rehabilitation-Phase1 [CONS] Routine Comment: Reason for Consult: CAD Call Completed: Yes 04/26/19 12:23 Consult to Cardiac Rehabilitation-Phase1 [CONS] Routine Comment: Reason for Consult: Post open heart Call Completed: Yes Procedure(s) Performed: 04/26/2019. Coronary artery bypass grafting 5, utilizing the left internal mammary artery. Discharging clinician: Main Peguero Anticipated date of discharge: 04/30/19 Physical Examination Vital Signs, Last 4 Hours Temp Pulse Resp BP Pulse Ox 04/30/19 11:26 98.9 F 108 15 126/88 91 04/30/19 10:54 18 94 - Patient Status Disposition: Home, Self-Care Functional capacity at discharge: independent ambulation Overall status at discharge: patient is progressing back to baseline - Discharge Instructions Follow Up With: Blanco Walker MD [Partnered Physician] - 06/07/19 1:00 pm Lesvia Perez MD [Partnered Physician] - 05/16/19 9:45 am Valerie Arriaga CNP [Primary Care Provider] - 05/08/19 10:30 am [facility] Aspirin Cont/Prescribed at DC: Yes Beta Nu Cont/Prescribed at DC: Yes Statin Cont/Prescribed at DC: Yes JETT/ARB Cont/Prescribed at DC: Yes - VTE Documentation of Mechanical Device: Graduated compression elastic hosiery
[2019-04-30] MEDS ORDERED: Mannitol 25% vial 12.5 GM/50 ML VIAL IVP ONE (16:38)
[2019-04-30] MEDS ORDERED: Albumin Human 25% 25 GM/100 ML IV.SOLN IV ONE (16:38)
[2019-04-30] MEDS ORDERED: *HR* Magnesium Sulfate 2 GM/50 ML PIGGYBACK IVPB ONE (16:38)
[2019-04-30] MEDS ORDERED: *HR* Phenylephrine 10 MG/ML VIAL IVC ONE (16:38)
[2019-04-30] MEDS ORDERED: Lidocaine 2% Syringe 100 MG/5 ML IV ONE (16:38)
== END 2019-04-30 16:39 | disposition home or self-care (01) | DRG 233 ==
LOC: 3BNU → SUATTDRO 04-21 18:15 → ICNU 04-26 10:42 → 2NNU 04-28 13:16
PROVIDERS: ADMIT Internal Medicine; ATTEND Internal Medicine

== ENCOUNTER 2019-05-02 07:15 | Inpatient (IN) ==
[2019-05-02 08:14] LABS: Basophils # 0.1 K/mcL (0.0-0.2); Basophils % 0.4 %; Eosinophils # 0.6 K/mcL (0.0-0.6); Eosinophils % 5.2 %; Hematocrit 35.6 % (37.5-50.1); Hemoglobin 12.1 g/dL (12.9-16.9); Immature Granulocytes % 0.6 % (0-4); Lymphocytes # 1.7 K/mcL (0.6-4.6); Lymphocytes % 14.1 %; Mean Corpuscular Hemoglobin 29.5 pg (28.0-33.3); Mean Corpuscular Volume 86.8 fL (83.0-100.0); Monocytes % 8.7 %; Neutrophils # 8.5 K/mcL (1.6-8.9); Platelet Count 322 K/mcL (140-400)
[2019-05-02 08:28] LABS: Prothrombin Time 11.6 Seconds (9.4-12.1)
[2019-05-02 08:31] LABS: Activated Partial Thrombo Time 25.2 Seconds (26.0-36.0)
[2019-05-02 08:40] LABS: BUN/Creatinine Ratio 25 (6-26); Blood Urea Nitrogen 22 mg/dL (8-23); Calcium 8.4 mg/dL (8.6-10.3); Carbon Dioxide 32 mEq/L (23-29); Chloride 99 mEq/L (98-107); Glucose 111 mg/dL (70-105); Osmolality,Calculated 292 (280-300); Potassium 3.2 mEq/L (3.5-5.1); Sodium 139 mEq/L (136-145); Troponin I 9.17 ng/mL (< 0.04); eGFR For African Americans > 60 (> 60); eGFR For Non-African Americans > 60 (> 60)
[2019-05-02] MEDS ORDERED: Aspirin 325 MG TABLET PO ONE (08:51)
[2019-05-02] MEDS ORDERED: Ondansetron 4 MG/2 ML VIAL IVP PRN (10:44)
[2019-05-02] MEDS ORDERED: Naloxone 0.4 MG/ML INJ IVP PRN (10:44)
[2019-05-02] MEDS ORDERED: MOM Conc 10 ML UD.LIQ PO PRN (10:44)
[2019-05-02] MEDS ORDERED: levoFLOXacin 750 MG/150 ML 750 MG/150 ML BAG IVPB SCH (11:57)
[2019-05-02] MEDS ORDERED: Ipratropium/Albuterol Neb 3 ML IH PRN (11:57)
[2019-05-02] MEDS ORDERED: *HR* OxyCODONE/APAP 5/325 TABLET PO PRN (14:16)
[2019-05-02] MEDS ORDERED: Nitroglycerin 0.4 MG TAB.SUBL SL PRN ×2 (14:16→14:30)
[2019-05-02] MEDS: Nicotine 14 MG PATCH.TD24 TD SCH (15:20)
[2019-05-02] MEDS ORDERED: *HR* Heparin 5,000 UNIT/ML VIAL IVP ONE (16:34)
[2019-05-02] MEDS ORDERED: *HR* Heparin 5,000 UNIT/ML VIAL IVP PRN ×2 (16:34)
[2019-05-02] MEDS ORDERED: Heparin 25,000 UNIT/250 ML D5W 25,000 UNIT/250 ML IV.SOLN IVC SCH (16:45)
[2019-05-02 18:02] LABS: Hematocrit 38.9 % (37.5-50.1); Hemoglobin 12.9 g/dL (12.9-16.9); Mean Corpuscular HGB Conc 33.2 g/dL (31.6-35.5); Mean Corpuscular Hemoglobin 29.3 pg (28.0-33.3); Mean Corpuscular Volume 88.2 fL (83.0-100.0); Platelet Count 390 K/mcL (140-400); Red Blood Count 4.41 M/mcL (4.19-5.50); White Blood Count 14.8 K/mcL (4.3-11.1)
[2019-05-02 18:08] LABS: INR 1.1; Prothrombin Time 12.8 Seconds (9.4-12.1)
[2019-05-02 18:10] LABS: Heparin anti-factor XA UFH 0.01 IU/mL (0.30-0.70)
[2019-05-03 06:18] LABS: Hematocrit 35.4 % (37.5-50.1); Hemoglobin 11.6 g/dL (12.9-16.9); Mean Corpuscular HGB Conc 32.8 g/dL (31.6-35.5); Mean Corpuscular Hemoglobin 28.6 pg (28.0-33.3); Mean Corpuscular Volume 87.4 fL (83.0-100.0); Platelet Count 386 K/mcL (140-400); Red Blood Count 4.05 M/mcL (4.19-5.50); White Blood Count 14.4 K/mcL (4.3-11.1)
[2019-05-03 07:07] LABS: BUN/Creatinine Ratio 23 (6-26); Blood Urea Nitrogen 21 mg/dL (8-23); Calcium 8.4 mg/dL (8.6-10.3); Carbon Dioxide 32 mEq/L (23-29); Chloride 99 mEq/L (98-107); Glucose 107 mg/dL (70-105); Osmolality,Calculated 291 (280-300); Potassium 3.5 mEq/L (3.5-5.1); Sodium 139 mEq/L (136-145); eGFR For African Americans > 60 (> 60); eGFR For Non-African Americans > 60 (> 60)
[2019-05-03] MEDS: Gabapentin 300 MG CAPSULE PO SCH (09:18)
[2019-05-03] MEDS: Metoprolol XL (24 HR) Succ 50 MG TAB.ER.24H PO SCH (09:18)
[2019-05-03] MEDS: *HR* Amiodarone 200 MG TABLET PO SCH (09:18)
[2019-05-03] MEDS: Aspirin Enteric Coated 81 MG Tablet PO SCH (09:18)
[2019-05-03] MEDS: Nicotine 14 MG PATCH.TD24 TD SCH (09:19)
[2019-05-03] MEDS ORDERED: Heparin 1,000 UNITS/500 mL 500 ML ONE (10:30)
[2019-05-03] MEDS ORDERED: *HR* Heparin 10,000 UNIT/10 ML VIAL ONE (10:30)
[2019-05-03] MEDS ORDERED: ISOVUE-370 200 ML INFUS..BTL ONE (10:30)
[2019-05-03] MEDS ORDERED: 0.9 % Sodium Chloride 1,000 ML ONE ×2 (10:31→10:32)
[2019-05-03] MEDS ORDERED: Nitroglycerin 1,000 MCG/10 ML VIAL IV ONE (10:31)
[2019-05-03] MEDS ORDERED: *HR* Midazolam HCl 2 MG/2 ML VIAL ONE (11:37)
[2019-05-03] MEDS ORDERED: *HR* FentaNYL (PF) 100 MCG/2 ML VIAL ONE (11:59)
[2019-05-03] MEDS: levoFLOXacin 750 MG TABLET PO SCH (14:52)
[2019-05-04 08:37] LABS: Basophils # 0.1 K/mcL (0.0-0.2); Basophils % 0.4 %; Eosinophils # 0.7 K/mcL (0.0-0.6); Eosinophils % 4.4 %; Hematocrit 36.4 % (37.5-50.1); Hemoglobin 11.9 g/dL (12.9-16.9); Immature Granulocytes % 0.8 % (0-4); Lymphocytes # 2.5 K/mcL (0.6-4.6); Lymphocytes % 15.8 %; Mean Corpuscular HGB Conc 32.7 g/dL (31.6-35.5); Mean Corpuscular Volume 88.8 fL (83.0-100.0); Mean Platelet Volume 9.6 fL (9.4-12.4); Monocytes # 1.4 K/mcL (0.0-1.3); Monocytes % 8.8 %; Neutrophils # 10.9 K/mcL (1.6-8.9); Platelet Count 422 K/mcL (140-400); Red Cell Distribution Width 13.8 % (11.5-14.5); Segmented Neutrophils % 69.8 %; White Blood Count 15.7 K/mcL (4.3-11.1)
[2019-05-04] MEDS: Nicotine 14 MG PATCH.TD24 TD SCH (08:40)
[2019-05-04] MEDS: Aspirin Enteric Coated 81 MG Tablet PO SCH (08:40)
[2019-05-04] MEDS: levoFLOXacin 750 MG TABLET PO SCH (08:40)
[2019-05-04] MEDS: Gabapentin 300 MG CAPSULE PO SCH (08:41)
[2019-05-04] MEDS: Metoprolol XL (24 HR) Succ 50 MG TAB.ER.24H PO SCH (08:41)
[2019-05-04] MEDS: *HR* Amiodarone 200 MG TABLET PO SCH (08:41)
[2019-05-04 08:55] LABS: BUN/Creatinine Ratio 21 (6-26); Blood Urea Nitrogen 19 mg/dL (8-23); Calcium 8.4 mg/dL (8.6-10.3); Carbon Dioxide 32 mEq/L (23-29); Chloride 100 mEq/L (98-107); Glucose 101 mg/dL (70-105); Osmolality,Calculated 286 (280-300); Potassium 3.6 mEq/L (3.5-5.1); Sodium 137 mEq/L (136-145); eGFR For African Americans > 60 (> 60); eGFR For Non-African Americans > 60 (> 60)
[2019-05-04 16:54] VITALS: BP 105/80
[2019-05-04] MEDS ORDERED: *HR* Heparin 5,000 UNIT/ML VIAL SQ SCH (18:00)
== END 2019-05-04 19:18 | disposition home or self-care (01) | DRG 281 ==
LOC: 2NNU 07:15 → EMEROOARM 07:15 → 2NNU 12:05
PROVIDERS: ADMIT Internal Medicine; ATTEND Internal Medicine

== ENCOUNTER 2019-09-17 15:10 | Inpatient (IN) ==
[2019-09-17] MEDS ORDERED: Ondansetron 4 MG/2 ML VIAL IVP PRN (17:19)
[2019-09-17] MEDS ORDERED: Naloxone 0.4 MG/ML INJ IVP PRN (17:19)
[2019-09-17] MEDS ORDERED: Acetaminophen 325 MG TABLET PO PRN (17:19)
[2019-09-17] MEDS ORDERED: MOM Conc 10 ML UD.LIQ PO PRN (17:19)
[2019-09-17] MEDS ORDERED: Mag Hydrox/Al Hydrox/Simeth 30 ML UDC PO PRN (17:19)
[2019-09-17] MEDS ORDERED: *HR* Promethazine 25 MG/ML VIAL IVP PRN (17:19)
[2019-09-17] MEDS ORDERED: Nitroglycerin 0.4 MG TAB.SUBL SL PRN (17:21)
[2019-09-17] MEDS ORDERED: *HR* Heparin 5,000 UNIT/ML VIAL IVP ONE (17:53)
[2019-09-17] MEDS ORDERED: *HR* Heparin 5,000 UNIT/ML VIAL IVP PRN ×2 (17:53)
[2019-09-17 18:25] LABS: Hematocrit 38.8 % (37.5-50.1); Immature Platelets 4.1 % (1.1-6.1); Mean Corpuscular HGB Conc 33.5 g/dL (31.6-35.5); Mean Corpuscular Hemoglobin 28.8 pg (28.0-33.3); Mean Corpuscular Volume 85.8 fL (83.0-100.0); Red Blood Count 4.52 M/mcL (4.19-5.50); Red Cell Distribution Width 14.5 % (11.5-14.5); White Blood Count 7.7 K/mcL (4.3-11.1)
[2019-09-17] MEDS: Heparin 25,000 UNIT/250 ML D5W 25,000 UNIT/250 ML IV.SOLN IVC SCH (18:40)
[2019-09-17 18:41] LABS: Heparin anti-factor XA UFH 0.78 IU/mL (0.30-0.70)
[2019-09-17 18:42] LABS: Prothrombin Time 11.8 Seconds (9.4-12.1)
[2019-09-18 01:40] LABS: Basophils % 0.4 %; Eosinophils # 0.2 K/mcL (0.0-0.6); Eosinophils % 1.9 %; Hematocrit 37.5 % (37.5-50.1); Hemoglobin 12.6 g/dL (12.9-16.9); Immature Granulocytes % 0.3 % (0-4); Lymphocytes # 2.5 K/mcL (0.6-4.6); Lymphocytes % 27.2 %; Mean Corpuscular HGB Conc 33.6 g/dL (31.6-35.5); Mean Corpuscular Hemoglobin 29.1 pg (28.0-33.3); Mean Corpuscular Volume 86.6 fL (83.0-100.0); Mean Platelet Volume 10.5 fL (9.4-12.4); Monocytes # 0.7 K/mcL (0.0-1.3); Monocytes % 7.7 %; Neutrophils # 5.7 K/mcL (1.6-8.9); Platelet Count 244 K/mcL (140-400); Red Blood Count 4.33 M/mcL (4.19-5.50); Red Cell Distribution Width 14.5 % (11.5-14.5); Segmented Neutrophils % 62.5 %; White Blood Count 9.1 K/mcL (4.3-11.1)
[2019-09-18 02:00] LABS: BUN/Creatinine Ratio 17 (6-26); Blood Urea Nitrogen 20 mg/dL (8-23); Calcium 8.7 mg/dL (8.6-10.3); Carbon Dioxide 32 mEq/L (23-29); Chloride 102 mEq/L (98-107); Chol/HDL Ratio 2.1 (0-4.9); Cholesterol 85 mg/dL (< 200); Glucose 108 mg/dL (70-105); HDL Cholesterol 41 mg/dL (40-59); LDL Cholesterol,Calculated 37 mg/dL (0-99); Osmolality,Calculated 291 (280-300); Phosphorous 3.9 mg/dL (2.7-4.5); Potassium 3.9 mEq/L (3.5-5.1); Sodium 139 mEq/L (136-145); Triglycerides 34 mg/dL (< 150); eGFR For African Americans > 60 (> 60); eGFR For Non-African Americans > 60 (> 60)
[2019-09-18] MEDS: Aspirin Enteric Coated 81 MG Tablet PO SCH (08:06)
[2019-09-18] MEDS: Isosorbide MONOnitrate (24 HR) 30 MG TAB.ER.24H PO SCH (10:39)
[2019-09-18] MEDS: Metoprolol XL (24 HR) Succ 25 MG TAB.ER.24H PO SCH (10:39)
[2019-09-18] MEDS: Fluticasone Propionate Nasal 50 MCG/SPRAY BOTTLE NS SCH (10:39)
[2019-09-18] MEDS ORDERED: Perflutren Lipid Microsphere 1.3 ML in 0.9 % Sodium Chloride 8.7 ML IVP ONE (15:15)
[2019-09-18] MEDS: Heparin 25,000 UNIT/250 ML D5W 25,000 UNIT/250 ML IV.SOLN IVC SCH (15:47)
[2019-09-19 07:01] LABS: Hematocrit 36.9 % (37.5-50.1); Hemoglobin 12.5 g/dL (12.9-16.9); Mean Corpuscular HGB Conc 33.9 g/dL (31.6-35.5); Mean Corpuscular Volume 85.6 fL (83.0-100.0); Platelet Count 218 K/mcL (140-400); Red Blood Count 4.31 M/mcL (4.19-5.50); Red Cell Distribution Width 14.1 % (11.5-14.5); White Blood Count 8.6 K/mcL (4.3-11.1)
[2019-09-19 07:24] LABS: BUN/Creatinine Ratio 19 (6-26); Blood Urea Nitrogen 19 mg/dL (8-23); Calcium 8.7 mg/dL (8.6-10.3); Carbon Dioxide 29 mEq/L (23-29); Chloride 103 mEq/L (98-107); Glucose 89 mg/dL (70-105); Osmolality,Calculated 294 (280-300); Potassium 3.4 mEq/L (3.5-5.1); Sodium 141 mEq/L (136-145); eGFR For African Americans > 60 (> 60); eGFR For Non-African Americans > 60 (> 60)
[2019-09-19] MEDS: Isosorbide MONOnitrate (24 HR) 30 MG TAB.ER.24H PO SCH (08:09)
[2019-09-19] MEDS: Aspirin Enteric Coated 81 MG Tablet PO SCH (08:09)
[2019-09-19] MEDS: Metoprolol XL (24 HR) Succ 25 MG TAB.ER.24H PO SCH (08:09)
[2019-09-19] MEDS: Fluticasone Propionate Nasal 50 MCG/SPRAY BOTTLE NS SCH (08:10)
[2019-09-19 12:26] VITALS: BP 122/72
[2019-09-19] MEDS ORDERED: *HR* Heparin 5,000 UNIT/ML VIAL SQ SCH (18:00)
== END 2019-09-19 15:40 | disposition home or self-care (01) | DRG 303 ==
LOC: 3BNU
PROVIDERS: ADMIT Internal Medicine; ATTEND Internal Medicine

== ENCOUNTER 2021-02-22 01:58 | Observation (INO) ==
[2021-02-22] MEDS ORDERED: Aspirin 81 MG TAB.CHEW PO ONE (02:09)
[2021-02-22 02:40] LABS: Basophils # 0.1 K/mcL (0.0-0.2); Basophils % 0.6 %; Eosinophils # 0.3 K/mcL (0.0-0.6); Eosinophils % 3.1 %; Hematocrit 39.3 % (37.5-50.1); Hemoglobin 12.8 g/dL (12.9-16.9); Immature Granulocytes % 0.2 % (0-4); Lymphocytes # 2.4 K/mcL (0.6-4.6); Lymphocytes % 22.5 %; Mean Corpuscular HGB Conc 32.6 g/dL (31.6-35.5); Mean Corpuscular Hemoglobin 28.7 pg (28.0-33.3); Mean Corpuscular Volume 88.1 fL (83.0-100.0); Mean Platelet Volume 10.7 fL (9.4-12.4); Monocytes # 0.9 K/mcL (0.0-1.3); Monocytes % 8.6 %; Neutrophils # 6.9 K/mcL (1.6-8.9); Platelet Count 238 K/mcL (140-400); Red Blood Count 4.46 M/mcL (4.19-5.50); Red Cell Distribution Width 13.7 % (11.5-14.5); White Blood Count 10.7 K/mcL (4.3-11.1)
[2021-02-22 02:43] LABS: INR 1.1; Prothrombin Time 12.7 Seconds (9.4-12.1)
[2021-02-22 02:46] LABS: Activated Partial Thrombo Time 26.6 Seconds (26.0-36.0)
[2021-02-22 03:07] LABS: BUN/Creatinine Ratio 22 (6-26); Blood Urea Nitrogen 28 mg/dL (8-23); Calcium 9.1 mg/dL (8.6-10.3); Carbon Dioxide 27 mEq/L (23-29); Chloride 103 mEq/L (98-107); Glucose 110 mg/dL (70-105); Osmolality,Calculated 292 (280-300); Potassium 3.5 mEq/L (3.5-5.1); Sodium 138 mEq/L (136-145); eGFR For African Americans > 60 (> 60); eGFR For Non-African Americans 56 (> 60)
[2021-02-22 03:17] LABS: Troponin I 0.05 ng/mL (< 0.04)
[2021-02-22] MEDS ORDERED: Aspirin 81 MG TAB.CHEW PO STA (03:18)
[2021-02-22] MEDS ORDERED: Naloxone 0.4 MG/ML INJ IVP PRN (07:14)
[2021-02-22] MEDS ORDERED: Ondansetron ODT 4 MG TAB.RAPDIS SL PRN (07:14)
[2021-02-22] MEDS ORDERED: Acetaminophen 325 MG TABLET PO PRN (07:14)
[2021-02-22] MEDS ORDERED: Perflutren Lipid Microsphere 1.3 ML in 0.9 % Sodium Chloride 8.7 ML IVP PRN (07:19)
[2021-02-22] MEDS ORDERED: Nitroglycerin 0.4 MG TAB.SUBL SL PRN (14:57)
[2021-02-22] MEDS: Gabapentin 300 MG CAPSULE PO SCH ×2 (15:37→22:05)
[2021-02-23 02:15] LABS: BUN/Creatinine Ratio 24 (6-26); Blood Urea Nitrogen 26 mg/dL (8-23); Calcium 8.6 mg/dL (8.6-10.3); Carbon Dioxide 27 mEq/L (23-29); Chloride 102 mEq/L (98-107); Glucose 111 mg/dL (70-105); Osmolality,Calculated 287 (280-300); Potassium 3.1 mEq/L (3.5-5.1); Sodium 136 mEq/L (136-145); eGFR For African Americans > 60 (> 60); eGFR For Non-African Americans > 60 (> 60)
[2021-02-23] MEDS ORDERED: *HR* Enoxaparin 40 MG/0.4 ML SYRINGE SQ SCH (06:00)
[2021-02-23] MEDS ORDERED: Isosorbide MONOnitrate (24 HR) 60 MG TAB.ER.24H PO SCH (09:00)
[2021-02-23] MEDS ORDERED: Metoprolol XL (24 HR) Succ 50 MG TAB.ER.24H PO SCH (09:00)
[2021-02-23] MEDS ORDERED: Aspirin Enteric Coated 81 MG Tablet PO SCH (09:00)
[2021-02-23] MEDS: Gabapentin 300 MG CAPSULE PO SCH (09:26)
[2021-02-23 11:05] VITALS: BP 122/90
== END 2021-02-23 11:50 | disposition home or self-care (01) ==
LOC: EMEROOARM 01:58 → 3BNU 01:58 → SUATTDRO 07:20 → 3BNU 08:23
PROVIDERS: ADMIT Internal Medicine; ATTEND Internal Medicine